=== PATIENT | male | born 1930 | race African-American/Black ===

== ENCOUNTER 2019-03-28 12:41 | Emergency (ER) | payer OTHER ==
--- OUTSIDE RECORDS SUMMARY | 2019-03-28 12:43 | XMS REPORT ---
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 30-59) 12/24 12/24 Joy disease, Stage DO III (moderate) Diabetes 250.00 Active Chelsea Diabetes mellitus 12/24 12/24 Joy mellitus DO without mention of complication, type II or unspecified type, not stated as uncontrolled VITAMIN D 268.9 Active Chelsea Unspecified DEFICIENCY 12/24 12/24 Joy vitamin D DO deficiency BPH (benign 600.00 Active Chelsea Hypertrophy prostatic 12/10 12/10 Joy (benign) of hypertrophy) DO prostate without urinary obstruction and other lower urinary tract (LUTS) 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, unspecified Hypothyroidism 244.9 Active Chelsea Unspecified 12/10 12/10 Joy hypothyroidism DO Lumbago 724.2 Active Chelsea Lumbago 12/10 12/10 Joy DO Overweight 278.02 Active Chelsea Overweight 12/10 12/10 Joy DO Well adult exam V70.0 Active Chelsea Routine general 12/10 12/10 Joy medical DO examination at a health care facility Medication List Medication Instructions Start Stop Generic NDC Status Provider Patient Date Date Name Instruction VITAMIN D One ERGOCALCIFEROL 23447436065 Active Chelsea Active (ERGOCALCIFEROL) tablet Joy 25143 UNIT ORAL by DO CAPSULE mouth once per week for 12 weeks SYNTHROID 75 MCG 1 by LEVOTHYROXINE 51211849566 Active Chelsea Active ORAL TABLET mouth SODIUM Joy every DO day one hour before breakfa st TAMSULOSIN HCL 2 caps TAMSULOSIN HCL 24749354272 Active Chelsea Active 0.4 MG ORAL By Joy CAPSULE Mouth DO qHS TYLENOL EXTRA 2 by ACETAMINOPHEN [id number] Active Chelsea Active STRENGTH 500 MG mouth Ojy ORAL TABLET every 8 DO hours as needed for pain GLIPIZIDE ER one By Mouth GLIPIZIDE ER GLIPIZIDE Inactive 2.5 MG ORAL qAM before 2.5 MG ORAL TABLET EXTENDED lunch TABLET EXTENDED RELEASE 24 HOUR RELEASE 24 HOUR GLIPIZIDE one By GLIPIZIDE [id number] No Chelsea Active ER 2.5 MG Mouth Longer Joy ORAL TABLET qAM Active DO EXTENDED before RELEASE 24 lunch HOUR Advance Directives Directive Description Start Date DISCUSSED - NO DECISION MADE Diagnostic Results Date Name Value Unit Range Description Lab Report: LIPID PANEL, HDL CHOLESTEROL, TRIGLYCERIDES, LDL-CHOLESTEROL ... - Serology hepatitis C antibody, serum NON-REACTIVE NON-REACTIVE Lab Report: COMPREHENSIVE METABOLIC PANEL, T4, FREE, TSH W/REFLEX TO FT4 - Chemistry urea nitrogen, blood 20 mg/dL 7-25 Lab Report: LIPID PANEL, HDL CHOLESTEROL, TRIGLYCERIDES, LDL-CHOLESTEROL ... - Hematology mean platelet volume 10.0 fL 7.5-11.5 Lab Report: COMPREHENSIVE METABOLIC PANEL, T4, FREE, TSH W/REFLEX TO FT4 - Chemistry creatinine, serum 1.83 mg/dL 0.70-1.11 chloride, serum 104 mmol/L 98-110 Lab Report: LIPID PANEL, HDL CHOLESTEROL, TRIGLYCERIDES, LDL-CHOLESTEROL ... - Hematology mean corpuscular volume, RBC 88.0 fL 80.0-100.0 Lab Report: LIPID PANEL, HDL CHOLESTEROL, TRIGLYCERIDES, LDL-CHOLESTEROL ... - Chemistry triglyceride, serum, fasting 151 mg/dL <150 lymphocytes, absolute 2218 CELLS/UL 10*3/uL 850-3900 Lab Report: LIPID PANEL, HDL CHOLESTEROL, TRIGLYCERIDES, LDL-CHOLESTEROL ... - Hematology erythrocyte (RBC) count 5.02 MILLION/UL 10*6/mm3 4.20-5.80 Lab Report: COMPREHENSIVE METABOLIC PANEL, T4, FREE, TSH W/REFLEX TO FT4 - Chemistry Estimated Glomerular Filtration 33 mL/min/1.73m2 > OR=60 Rate (calc) globulins, serum, total 3.3 G/DL (CALC) g/dL 1.9-3.7 Lab Report: LIPID PANEL, HDL CHOLESTEROL, TRIGLYCERIDES, LDL-CHOLESTEROL ... - Hematology platelet count 183 THOUSAND/UL 10*3/mm3 691-567 2538/03/24 red blood cell distribution width 16.9 % 11.0-15.0 Lab Report: COMPREHENSIVE METABOLIC PANEL, T4, FREE, TSH W/REFLEX TO FT4 - Chemistry protein, total, serum 7.6 g/dL 6.1-8.1 Lab Report: LIPID PANEL, HDL CHOLESTEROL, TRIGLYCERIDES, LDL-CHOLESTEROL ... - Chemistry HDL cholesterol, serum 51 mg/dL > OR=40 cholesterol, non-HDL, total 154 MG/DL (CALC) mg/dL Lab Report: COMPREHENSIVE METABOLIC PANEL, T4, FREE, TSH W/REFLEX TO FT4 - Chemistry albumin/globulin ratio, serum 1.3 (calc) 1.0-2.5 Lab Report: LIPID PANEL, HDL CHOLESTEROL, TRIGLYCERIDES, LDL-CHOLESTEROL ... - Hematology basophil count, absolute 13 cells/uL 0-200 Lab Report: LIPID PANEL, HDL CHOLESTEROL, TRIGLYCERIDES, LDL-CHOLESTEROL ... - Chemistry hepatitis B surface antigen NON-REACTIVE NON-REACTIVE Lab Report: COMPREHENSIVE METABOLIC PANEL, T4, FREE, TSH W/REFLEX TO FT4 - Chemistry alanine aminotransferase (SGPT), serum 18 U/L 9-46 Lab Report: LIPID PANEL, HDL CHOLESTEROL, TRIGLYCERIDES, LDL-CHOLESTEROL ... - Chemistry LDL cholesterol, serum 124 MG/DL (CALC) mg/dL <130 Lab Report: LIPID PANEL, HDL CHOLESTEROL, TRIGLYCERIDES, LDL-CHOLESTEROL ... - Hematology monocytes as percent of blood leukocytes 8.1 % eosinophils as percent of blood leukocytes 1.0 % Lab Report: LIPID PANEL, HDL CHOLESTEROL, TRIGLYCERIDES, LDL-CHOLESTEROL ... - Chemistry cholesterol, serum 205 mg/dL 125-200 Lab Report: LIPID PANEL, HDL CHOLESTEROL, TRIGLYCERIDES, LDL-CHOLESTEROL ... - Lab Hepatitis C Antibody, Signal to Cut-Off 0.03 <1.00 Lab Report: LIPID PANEL, HDL CHOLESTEROL, TRIGLYCERIDES, LDL-CHOLESTEROL ... - Hematology mean corpuscular hemoglobin 33.1 G/DL % 32.0-36.0 concentration, RBC hemoglobin, blood 14.6 g/dL 13.2-17.1 leukocyte count, blood 6.6 THOUSAND/UL 10*3/mm3 3.8-10.8 Lab Report: LIPID PANEL, HDL CHOLESTEROL, TRIGLYCERIDES, LDL-CHOLESTEROL ... - Chemistry B-12, serum 232 pg/mL 200-1100 Absolute Neutrophil count 3769 {Cells}/uL 2990-0677 Lab Report: LIPID PANEL, HDL CHOLESTEROL, TRIGLYCERIDES, LDL-CHOLESTEROL ... - Hematology hematocrit, blood 44.2 % 38.5-50.0 Lab Report: LIPID PANEL, HDL CHOLESTEROL, TRIGLYCERIDES, LDL-CHOLESTEROL ... - Chemistry vitamin D 25-hydroxy, serum 8 ng/mL 30-100 Lab Report: COMPREHENSIVE METABOLIC PANEL, T4, FREE, TSH W/REFLEX TO FT4 - Chemistry albumin, serum 4.3 g/dL 3.6-5.1 Lab Report: LIPID PANEL, HDL CHOLESTEROL, TRIGLYCERIDES, LDL-CHOLESTEROL ... - Hematology basophils as percent of blood leukocytes 0.2 % Lab Report: COMPREHENSIVE METABOLIC PANEL, T4, FREE, TSH W/REFLEX TO FT4 - Chemistry calcium, serum 10.0 mg/dL 8.6-10.3 thyroxine, serum, free 1.2 ng/dL 0.8-1.8 Internal Correspondence: Pre-Visit Planning 4/26/16 915am - [employer]1, name Danielle Garcia Lab Report: COMPREHENSIVE METABOLIC PANEL, T4, FREE, TSH W/REFLEX TO FT4 - Chemistry urea nitrogen/creatinine ratio, serum 11 (calc) 6-22 Lab Report: COMPREHENSIVE METABOLIC PANEL, T4, FREE, TSH W/REFLEX TO FT4 - Genetics/fertility eGFR if 38 mL/min/1.73m2 > OR=60 Lab Report: LIPID PANEL, HDL CHOLESTEROL, TRIGLYCERIDES, LDL-CHOLESTEROL ... - Hematology lymphocytes as percent of blood leukocytes 33.6 % Lab Report: COMPREHENSIVE METABOLIC PANEL, T4, FREE, TSH W/REFLEX TO FT4 - Chemistry carbon dioxide, venous blood 24 mmol/L 19-30 Lab Report: LIPID PANEL, HDL CHOLESTEROL, TRIGLYCERIDES, LDL-CHOLESTEROL ... - Serology rapid plasma reagin antibody, serum NON-REACTIVE NON-REACTIVE Lab Report: COMPREHENSIVE METABOLIC PANEL, T4, FREE, TSH W/REFLEX TO FT4 - Chemistry sodium, serum 140 mmol/L 135-146 Office Visit: Adult Followup: Lumbago, hypothyroidism and dizziness - Chemistry hemoglobin A1C, blood, as % of total hemoglobin 6.3 % Lab Report: COMPREHENSIVE METABOLIC PANEL, T4, FREE, TSH W/REFLEX TO FT4 - Chemistry alkaline phosphatase, serum 68 U/L 40-115 Lab Report: LIPID PANEL, HDL CHOLESTEROL, TRIGLYCERIDES, LDL-CHOLESTEROL ... - Hematology Absolute Monocyte count 535 {Cells}/uL 200-950 Lab Report: LIPID PANEL, HDL CHOLESTEROL, TRIGLYCERIDES, LDL-CHOLESTEROL ... - Chemistry folate, serum 8.0 ng/mL Lab Report: COMPREHENSIVE METABOLIC PANEL, T4, FREE, TSH W/REFLEX TO FT4 - Chemistry TSH (thyroid stimulating hormone) with reflex FT4 5.22 m[iU]/L 0.40-4.50 Lab Report: LIPID PANEL, HDL CHOLESTEROL, TRIGLYCERIDES, LDL-CHOLESTEROL ... - Hematology mean corpuscular hemoglobin, RBC 29.1 pg 27.0-33.0 Lab Report: COMPREHENSIVE METABOLIC PANEL, T4, FREE, TSH W/REFLEX TO FT4 - Chemistry bilirubin, serum, total 0.4 mg/dL 0.2-1.2 Lab Report: LIPID PANEL, HDL CHOLESTEROL, TRIGLYCERIDES, LDL-CHOLESTEROL ... - Hematology neutrophils as percent of blood leukocytes 57.1 % Lab Report: COMPREHENSIVE METABOLIC PANEL, T4, FREE, TSH W/REFLEX TO FT4 - Chemistry potassium, serum 5.0 mmol/L 3.5-5.3 blood glucose, random 85 mg/dL 65-99 Lab Report: LIPID PANEL, HDL CHOLESTEROL, TRIGLYCERIDES, LDL-CHOLESTEROL ... - Serology hepatitis B surface antibody NON-REACTIVE NON-REACTIVE Lab Report: LIPID PANEL, HDL CHOLESTEROL, TRIGLYCERIDES, LDL-CHOLESTEROL ... - Chemistry cholesterol/HDL ratio, serum, percent 4.0 (calc) < OR=5.0 Lab Report: COMPREHENSIVE METABOLIC PANEL, T4, FREE, TSH W/REFLEX TO FT4 - Chemistry aspartate aminotransferase (SGOT), serum 19 U/L 10-35 Lab Report: LIPID PANEL, HDL CHOLESTEROL, TRIGLYCERIDES, LDL-CHOLESTEROL ... - Hematology Absolute Eosinophil count 66 {Cells}/uL 15-500 Encounters Date Encounter Provider Code Facility Est Patient Detailed Chelsea Hamilton DO [id number] [facility] 15:57:50 CDT - 10066 Practice Est Patient Detailed Chelsea Hamilton DO CPT-76873 [facility] 09:51:45 CDT - 35271 Practice Procedures Code Procedure Name Date Entry Date Standard Description CPT-99266 New Patient Well Exam 10:49:08 (65 & Over) - 08231 CDT
[2019-03-28 13:21] LABS: Absolute Lymphocytes (CBC) 1.6 K/uL (0.7-4.9); Basophils % 0.4 % (0-1.3); Eosinophils % 1.1 % (0-4.4); Hematocrit 49.8 % (39.6-49.0); Lymphocytes % 20.5 % (15.3-44.8); MPV 9.3 fL (7.6-11.3); Monocytes % 17.3 % (3.3-12.3); RBC Red Blood Cell Count 5.86 M/uL (4.33-5.43)
[2019-03-28 13:42] LABS: Albumin 3.2 g/dL (3.4-5.0); Bilirubin Direct 0.2 mg/dL (0-0.2); Bilirubin Total 0.6 mg/dL (0.2-1.0); Potassium 4.4 mmol/L (3.5-5.1); Protein, Total 8.8 g/dL (6.4-8.2)
[2019-03-28 14:23] LABS: Blood Morphology Comment NOT SEEN (NOT SEEN); Platelet Estimate ADEQ
--- NOTE | 2019-03-28 14:51 | RAD REPORT ---
EXAM DESCRIPTION: CT - Stone Protocol - 03/28/2019 2:16 pm CLINICAL HISTORY: Flank pain. left sided abdominal pain COMPARISON: No comparisons TECHNIQUE: Axial images were obtained without oral or IV contrast. Lack of contrast limits solid org an and vascular assessment. The [id number] spans the entirety of the system partially obscuring uppermost abdomen and lung bases. Coronal reformatted images were obtained and reviewed. All CT scans are performed using dose optimization technique as appropriate and may include automated exposure control or mA/KV adjustment according to patient size. FINDINGS: The lower lung thrasher are emphysematous but clear. Imaged portions of the liver and spleen show no suspicious findings on non-contrast imaging. The panc reas and adrenal glands are normal. No pathologic lymphadenopathy in the abdomen or pelvis. No urinary tract stones or obstructive uropathy. Prominent right renal cyst measuring 6 cm is seen. There is quite prominent distention of the colon with stool and air. Normal appendix noted.No free ai r or free fluid. Prostate appears enlarged with a Hancock catheter in place. Large right and a small left inguinal herni a is seen. IMPRESSION: Prominent retention of stool in the colon is seen with mild distention of the colon pres ent. Significant prostatomegaly. Small left and moderate large right fat containing inguinal hernias.
[2019-03-28] MEDS ORDERED: FLEET ENEMA ADULT PR ONE (17:40)
--- NOTE | 2019-03-28 18:17 | ER ---
Nurse's Notes [facility] Name: Tristin Sanchez Age: 88 yrs Sex: Male : 1930 Arrival Date: 03/28/2019 Time: 12:46 Bed 23 Private MD: Diagnosis: Constipation, unspecified Presentation: 03/28 12:47 Presenting complaint: Patient states: intermittent abd pain that began 2 days ago. ss Denies N/V/D. Transition of care: patient was not received from another setting of care. Onset of symptoms was March 26, 2019. Risk Assessment: Do you want to hurt yourself or someone else? Patient reports no desire to harm self or others. Initial Sepsis Screen: Does the patient meet any 2 criteria? No. Patient's initial sepsis screen is negative. Does the patient have a suspected source of infection? Yes: Dysuria/Frequency/Urgency/UTI. Care prior to arrival: IV initiated. 20 GA, in the left antecubital area. Care prior to arrival: Medication(s) given: Normal saline infusion, 250 mL administered. 12:47 Method Of Arrival: EMS: [facility] ([place] 12:47 Acuity: HANSEL 3 ss Triage Assessment: 17:00 General: Appears in no apparent distress. Behavior is calm, cooperative. Pain: Denies iw pain. Historical: - Allergies: 12:52 No Known Allergies; ss - Immunization history:: Adult Immunizations unknown. - Social history:: Smoking status: Patient/guardian denies using tobacco. - Ebola Screening: : Patient denies exposure to infectious person Patient denies travel to an Ebola-affected area in the 21 days before illness onset. Screenin:24 Abuse screen: Denies threats or abuse. Denies injuries from another. Nutritional iw screening: No deficits noted. Tuberculosis screening: No symptoms or risk factors identified. Fall Risk None identified. Assessment: 14:23 Reassessment: Patient appears in no apparent distress at this time. Patient and/or iw family updated on plan of care and expected duration. Pain level reassessed. Patient denies pain at this time. Patient states feeling better. Patient states symptoms have improved. 15:42 Reassessment: Patient appears in no apparent distress at this time. No changes from iw previously documented assessment. Patient and/or family updated on plan of care and expected duration. Pain level reassessed. 16:47 Reassessment: Patient appears in no apparent distress at this time. Patient and/or iw family updated on plan of care and expected duration. Pain level reassessed. Patient is alert, oriented x 3, equal unlabored respirations, skin warm/dry/pink. family at bedside, waiting dispo. 18:12 Reassessment: Patient cleaned of large BM. States feeling much better. Abd is soft, ss non-tender. Vital Signs: 12:52 BP 195 / 80; Pulse 86; Resp 17; Temp 98.6(O); Pulse Ox 98% on R/A; Height 5 ft. 9 in. ss (175.26 cm); Pain 3/10; 14:23 BP 167 / 65; Pulse 74; Resp 16; Temp 98.0; Pulse Ox 100% on R/A; Pain 0/10; iw 16:01 BP 149 / 68; Pulse 82; Resp 16; Pulse Ox 96% on R/A; Pain 0/10; iw ED Course: 12:46 Patient arrived in ED. ss 12:52 Triage completed. ss 12:52 Arm band placed on left wrist. ss 13:00 Maintain EMS IV. Dressing intact. Site clean \T\ dry. Gauge \T\ site: 20-gauge in Right héctor 3 A/C. Patient maintains SpO2 saturation greater than 95% on room air. 13:07 Initial lab(s) drawn, by me, sent to lab. Inserted saline lock: 22 gauge in right jp3 antecubital area, using aseptic technique. Blood collected. 13:16 [facility] 13:16 Anderson Mcgarry MD is Attending Physician. m 13:54 Karly Charles, SUSHANT is Primary Nurse. iw 14:00 Patient has correct armband on for positive identification. iw 14:21 CT Stone Protocol In Process Unspecified. EDMS 18:15 Yony Cronin MD is Referral Physician. [facility] 18:52 No provider procedures requiring assistance completed. IV discontinued, intact, iw bleeding controlled, No redness/swelling at site. Pressure dressing applied. Administered Medications: 17:49 Drug: Fleet Enema 133 ml Route: MN; iw Outcome: 18:16 Discharge ordered by MD. [facility] 18:53 Discharged to home ambulatory. iw 18:53 Condition: good 18:53 Discharge instructions given to family, Instructed on discharge instructions, follow up and referral plans. Demonstrated understanding of instructions, follow-up care, medications, Prescriptions given X 1. 18:54 Patient left the ED. iw Signatures: Dispatcher [employer] EDMS Jim Montoya PA PA jmm Williams, Irene, SUSHANT CANCHOLA iw Evangelina Us RN RN ss Pisarski, Jacob jp3 Corrections: (The following items were deleted from the chart) 12:54 12:52 BP 195 / 80; Pulse 86bpm; Resp 17bpm; Pulse Ox 98% RA; Height 5 ft. 9 in.; Pain ss 3/10; ss 14:37 13:57 CBC Smear Scan drawn and sent. jp3 EDMS
--- NOTE | 2019-03-28 18:17 | EDPHYS ---
Physician Documentation [facility] Name: Tristin Sanchez Age: 88 yrs Sex: Male : 1930 Arrival Date: 03/28/2019 Time: 12:46 Bed 23 Private MD: ED Physician Anderson Mcgarry HPI: 03/28 13:26 This 88 yrs old Black Male presents to ER via EMS with complaints of Abdominal Pain. jmm 13:26 The patient presents with abdominal pain in the left lower quadrant, abdominal jmm distention. Onset: The symptoms/episode began/occurred gradually, 2 day(s) ago. Associated signs and symptoms: Pertinent positives: constipation, Pertinent negatives: nausea and vomiting, diarrhea. This is a 88 year old male that presents to the ED with complaints of 2 days ago abdominal pain and distension. Family states the patient has no eating today. Patient states he most recent bowel movement was 3 weeks ago. . Historical: - Allergies: 12:52 No Known Allergies; ss - Immunization history:: Adult Immunizations unknown. - Social history:: Smoking status: Patient/guardian denies using tobacco. - Ebola Screening: : Patient denies exposure to infectious person Patient denies travel to an Ebola-affected area in the 21 days before illness onset. ROS: 13:26 Constitutional: Negative for fever, chills, and weight loss, Cardiovascular: Negative jmm for chest pain, palpitations, and edema, Respiratory: Negative for shortness of breath, cough, wheezing, and pleuritic chest pain. 13:26 Abdomen/GI: Positive for abdominal pain, constipation. 13:26 All other systems are negative. Exam: 13:26 Constitutional: This is a well developed, well nourished patient who is awake, alert, jmm and in no acute distress. Head/Face: atraumatic. Eyes: EOMI, no conjunctival erythema appreciated ENT: Moist Mucus Membranes Neck: Trachea midline, Supple Chest/axilla: Normal chest wall appearance and motion. Cardiovascular: Regular rate and rhythm. No edema appreciated Respiratory: Normal respirations, no respiratory distress appreciated 13:26 Abdomen/GI: Inspection: distension, that is mild, Bowel sounds: normal, Palpation: soft, mild abdominal tenderness, in the left upper quadrant and left lower quadrant. 13:26 Musculoskeletal/extremity: ROM: intact in all extremities. 13:26 Skin: Appearance: Color: normal in color. 13:26 Neuro: Orientation: is normal, Mentation: is normal, Memory: is normal. 13:26 Psych: Behavior/mood is pleasant, cooperative. Vital Signs: 12:52 BP 195 / 80; Pulse 86; Resp 17; Temp 98.6(O); Pulse Ox 98% on R/A; Height 5 ft. 9 in. ss (175.26 cm); Pain 3/10; 14:23 BP 167 / 65; Pulse 74; Resp 16; Temp 98.0; Pulse Ox 100% on R/A; Pain 0/10; iw 16:01 BP 149 / 68; Pulse 82; Resp 16; Pulse Ox 96% on R/A; Pain 0/10; iw MDM: 13:26 Patient medically screened. [facility] 18:14 Data reviewed: vital signs, nurses notes. Counseling: I had a detailed discussion with nica the patient and/or guardian regarding: the historical points, exam findings, and any diagnostic results supporting the discharge/admit diagnosis, radiology results, the need for outpatient follow up, to return to the emergency department if symptoms worsen or persist or if there are any questions or concerns that arise at home. ED course: Patient able to have a full bowel movement in the ED with relief. Patient advised to follow up with PCP and GI for further evaluation. Patient was otherwise given strict return precautions. Patient understood and agrees with the plan of care. . 03/28 12:54 Order name: Basic Metabolic Panel; Complete Time: 14:03 03/28 12:54 Order name: CBC with Diff; Complete Time: 14:43 03/28 12:54 Order name: Creatinine for Radiology; Complete Time: 14:03 03/28 12:54 Order name: Hepatic Function; Complete Time: 14:03 03/28 12:54 Order name: Lipase; Complete Time: 14:03 03/28 12:54 Order name: IV Saline Lock; Complete Time: 13:26 03/28 12:54 Order name: Labs collected and sent; Complete Time: 13:26 03/28 14:04 Order name: CT Stone Protocol; Complete Time: 16:04 [facility] 03/28 14:25 Order name: Manual Differential; Complete Time: 14:43 EDMS Administered Medications: 17:49 Drug: Fleet Enema 133 ml Route: MT; iw Disposition: 03/29 07:33 Co-signature as Attending Physician, Anderson Mcgarry MD I agree with the assessment and kdr plan of care. Disposition: 03/28/19 18:16 Discharged to Home. Impression: Constipation, unspecified. - Condition is Stable. - Discharge Instructions: Constipation, Adult. - Prescriptions for Miralax 17 gram/dose Oral - take 1 packet by ORAL route once daily dilute powder in 8 ounces of water or juice; 1 Container. - Medication Reconciliation Form, Thank You Letter, Antibiotic Education, Prescription Opioid Use form. - Follow up: Yony Cronin MD; When: 2 - 3 days; Reason: Recheck today's complaints, Continuance of care, Re-evaluation by your physician. Signatures: Dispatcher [employer] EDMO Anderson Mcgarry MD MD [facility] Jim Montoya PA PA jmm Williams, Irene, SUSHANT RN iw Evangelina Us RN RN ss Corrections: (The following items were deleted from the chart) 03/28 14:07 13:27 Abdomen Pelvis W Con+CT.RAD.BRZ ordered. [facility] EDMO 14:37 13:24 CBC Smear Scan ordered. [facility] EDMS 18:54 18:16 03/28/2019 18:16 Discharged to Home. Impression: Constipation, unspecified. iw Condition is Stable. Forms are Medication Reconciliation Form, Thank You Letter, Antibiotic Education, Prescription Opioid Use. Follow up: Yony Cronin; When: 2 - 3 days; Reason: Recheck today's complaints, Continuance of care, Re-evaluation by your physician. kerri
== END 2019-03-28 18:54 | disposition home or self-care (01) ==
LOC: ER 12:41
DX: K59.00 Constipation, unspecified (principal)
CPT/HCPCS: 36415; 74176; 76377; 80048; 80076; 83690; 85025; 99284

== ENCOUNTER 2021-04-24 08:28 | Inpatient (IN) | payer OTHER ==
--- OUTSIDE RECORDS SUMMARY | 2021-04-24 08:31 | XMS REPORT | Continuity of Care Document ---
:1930 Author Organization [facility] t Address [address] [place] [address] Care Team Providers Name Role Phone Doctor Unassigned, Name Attending Clinician Unavailable Della CONNOLLY Attending Clinician Problems Condition Condition Condition Status Onset Resolution Last Treating Co mments Source Name Details Category Date Date Treatment Clinician Date Hyperlipid Hyperlipid Problem Active [facility] emia emia 02-27 Family 00:00: Practic 00 e Body mass Body Mass Problem Active Kia ann index Index 6-11 Family 25-29 - 25-29 - 00:00: Practic overweight Overweight 00 e Peripheral Peripheral Problem Active [facility] vascular Vascular 02-27 Family disease Disease 00:00: Practic 00 e Benign Benign Problem Active [facility] prostatic Prostatic - Fami ly hyperplasi Hyperplasi 00:00: Pr actic a a 00 e Frail Frail Problem Active [facility] elderly Elderly 6-11 Family 00:00: Practic 00 e 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 Social History Smoking Status Start Date Stop Date Source Never Smoker [facility] P ractice Medications Ordered Filled Start Stop Current Ordering Indication Dosage Frequency Signature Comments Components Source Medication Medication Date Date Medication? Clinician (SIG) Name Name Adult Adult No 1 Q1D Adult [facility] Aspirin Aspirin Aspirin Family Regimen 81 Regimen 81 Regimen 81 Practic mg mg mg e tablet,roula tablet,roula tablet,del yed release yed release ayed Take 1 Take 1 release tablet tablet Take 1 every day every day tablet by oral by oral every day route. route. by oral route. atorvastati atorvastati No atorvastat [facility] n 40 mg n 40 mg in 40 mg Famil y tablet tablet tablet Practic e levothyroxi levothyroxi No levothyrox [facility] ne 75 mcg ne 75 mcg ine 75 mcg Family tablet tablet tablet Practic e polyethylen polyethylen No polyethyle [facility] e glycol e glycol ne glycol Fa erum 3350 (bulk) 3350 (bulk) 3350 P ractic powder powder (bulk) e powder tamsulosin tamsulosin No 1capsul Q1D tamsulosin [facility] 0.4 mg 0.4 mg e(s) 0.4 mg Family capsule capsule capsule Practi c Take 1 Take 1 Take 1 e capsule capsule capsule every day every day every day by oral by oral by oral route. route. route. Vital Signs Vital Name Observation Time Observation Value Comments Source BP Diastolic 2021-02-24 00:00:00 60 mm[Hg] [facility] Height 2021-02-24 00:00:00 68 [in_i] [facility] BMI (Body Mass 2021-02-24 00:00:00 28.1 kg/m2 [facility] BP Systolic 2021-02-24 00:00:00 130 mm[Hg] [facility] Body Weight 2021-02-24 00:00:00 185 [lb_av] [facility] Height 2020-07-15 00:00:00 69 [in_i] [facility] Height 2020-04-14 00:00:00 69 [in_i] [facility] Procedures This patient has no known procedures. Plan of Care Planned Activity Planned Date Details Comments Source Future Appointment 2021-08-29 00:00[facility] [address]; Practice [address], [place] [address] [facility] Encounters Start End Encounter Admission Attending Care Care Encounter Source Date/Time Date/Time Type Type Clinicians Facility Department ID 2021-04-06 2021-04-06 Orders Doctor YURI [id number] 00:00:00 00:00:00 Only Unassigned, MARSHA [id number] [facility] [id number] 2021-03-26 2021-03-26 Orders Doctor YURI [id number] 00:00:00 00:00:00 Only Unassigned, MARSHA [id number] [facility] [id number] 2021-02-24 2021-02-24 Briseyda [facility] [place] - [id number] [facility]age 00:00:00 00:00:00 [facility] Krystal Zafar Medical - Practi c CNS: [email or web address] [address], [place] [address] , Ph. 2021-02-11 2021-02-11 Telephone Della [facility] [id number] 00:00:00 00:00:00 Cheng Benitez [id number] [facility] [id number] [facility] [id number] [address] 2021-02-07 2021-02-07 Orders Doctor WELCH [id number] 00:00:00 00:00:00 Only Unassigned, MARSHA [id number] [facility] [id number] 2020-07-15 2020-07-15 Sherrie [facility] [place] - [id number] [facility] 00:00:00 00:00:00 [facility] vanessa boone, CNS: Medical - Practi c [email or web address] [facility], [address] [address], [place] [address] , Ph. 2020-04-14 2020-04-14 Sherrie [facility] [place] - [id number] [facility] 00:00:00 00:00:00 [facility] CNS: Medical - Practi c [email or web address] [address], [place] [address] , Ph. Results This patient has no known results.
[2021-04-24 09:33] LABS: Absolute Lymphocytes (CBC) 1.2 K/uL (0.7-4.9); Basophils % 0.4 % (0-1.3); Hematocrit 37.2 % (39.6-49.0); Lymphocytes % 14.6 % (15.3-44.8); MPV 8.7 fL (7.6-11.3); RBC Red Blood Cell Count 4.37 M/uL (4.33-5.43)
[2021-04-24] MEDS ORDERED: MORPHINE 4 MG/ML SYR ONE (09:40)
[2021-04-24] MEDS ORDERED: ONDANSETRON 4 MG/2 ML VIAL ONE (09:40)
[2021-04-24 09:46] LABS: Protime INR 1.03
[2021-04-24 09:54] LABS: Albumin 3.6 g/dL (3.4-5.0); Bilirubin Direct 0.2 mg/dL (0-0.2); Bilirubin Total 0.6 mg/dL (0.2-1.0); Potassium 3.2 mmol/L (3.5-5.1); Protein, Total 7.5 g/dL (6.4-8.2)
[2021-04-24] MEDS ORDERED: NA CHLORIDE 0.9% 1,000 ML ONE (10:39)
--- NOTE | 2021-04-24 10:47 | RAD REPORT ---
EXAM DESCRIPTION: CT - Abdomen Pelvis Wo Contrast - 04/24/2021 10:13 am CLINICAL HISTORY: Abdominal pain COMPARISON: 2019 TECHNIQUE: Computed axial tomography of the abdomen and pelvis was obtained. IV and oral contrast we re not requested. All CT scans are performed using dose optimization technique as appropriate and may include automated exposure control or mA/KV adjustment according to patient size. FINDINGS: The evaluation of solid organs, vessels and bowel is limited secondary to the lack of con trast administration. Hepatic and splenic granulomata. The pancreas and adrenals appear grossly normal. Several right renal cysts. The largest measures 6 centimeters. Mild dilatation of the colon having the appearance of an ileus. Fluid is present within large and sma ll bowel. Normal appendix. Prostate gland is moderately to markedly enlarged. A Hancock catheter has its tip pushing against the s uperior wall of the bladder. No evidence of diverticulitis. Moderate right and small to moderate left inguinal hernias contain fat Small hiatal hernia IMPRESSION: Mild dilatation of fluid-filled large bowel having the appearance of an ileus. A Hancock catheter has its tip pushing against the superior wall of the bladder.
--- NOTE | 2021-04-24 11:36 | ER ---
Nurse's Notes [facility] Name: Tristin Sanchez Age: 89 yrs Sex: Male : 1930 Arrival Date: 04/24/2021 Time: 08:59 Bed 14 Private MD: Diagnosis: Ileus, unspecified;Abdominal pain, Generalized;Vomiting Presentation: 04/24 09:02 Chief complaint: EMS states: Daughter states abdominal pain x 2 days, RLQ rad to RUQ, ca1 reports abdominal distention and N/V/D. BGL 122. IV 20G LAC. PT has Hancock from home. VSS, NSR on EKG12L. Coronavirus screen: Client denies travel out of the [place] in the last 14 days. nausea, vomiting. Client presents with at least one sign or symptom that may indicate coronavirus-19. Standard/surgical mask placed on the client. Provider contacted for isolation considerations. Ebola Screen: Patient negative for fever greater than or equal to 101.5 degrees Fahrenheit, and additional compatible Ebola Virus Disease symptoms Patient denies exposure to infectious person. Patient denies travel to an Ebola-affected area in the 21 days before illness onset. No symptoms or risks identified at this time. Initial Sepsis Screen: Does the patient meet any 2 criteria? No. Patient's initial sepsis screen is negative. Does the patient have a suspected source of infection? No. Patient's initial sepsis screen is negative. Risk Assessment: Do you want to hurt yourself or someone else? Patient reports no desire to harm self or others. Onset of symptoms was April 23, 2021. 09:02 Method Of Arrival: [facility] ca1 09:02 Acuity: HANSEL 3 ca1 Historical: - Allergies: 09:05 Iodine; ca1 - PMHx: 09:05 Hypertensive disorder; Hypothyroidism; Hypercholesterolemia; ca1 - Immunization history:: Client reports receiving the 2nd dose of the Covid vaccine, Client reports receiving the 1st dose of the Covid vaccine. - Social history:: Smoking status: Patient denies any tobacco usage or history of. Screenin:06 Abuse screen: Denies threats or abuse. Denies injuries from another. Nutritional ca1 screening: No deficits noted. Tuberculosis screening: No symptoms or risk factors identified. Fall Risk IV access (20 points). Assessment: 09:06 General: Appears in no apparent distress. uncomfortable, Behavior is cooperative, ca1 appropriate for age. Pain: Complains of pain in right upper quadrant and right lower quadrant Pain currently is 10 out of 10 on a pain scale. Pain began 1 day ago. Is continuous. Neuro: Level of Consciousness is awake, alert, obeys commands, Oriented to person, place, time, situation. Cardiovascular: Heart tones S1 S2 present Capillary refill < 3 seconds Patient's skin is warm and dry. Respiratory: Airway is patent Respiratory effort is even, unlabored, Respiratory pattern is regular, symmetrical, Breath sounds are clear bilaterally. GI: Abdomen is round distended, Bowel sounds present X 4 quads. Abdomen is tender to palpation in right upper quadrant and right lower quadrant Reports diarrhea, nausea, vomiting. : Hancock in place to gravity drainage. EENT: No signs and/or symptoms were reported regarding the EENT system. Derm: Skin is intact, is healthy with good turgor, Skin is pink, warm \T\ dry. Musculoskeletal: Circulation, motion, and sensation intact. Capillary refill < 3 seconds. 11:20 Reassessment: Patient appears in no apparent distress at this time. Patient and/or ca1 family updated on plan of care and expected duration. Pain level reassessed. Patient is alert, oriented x 3, equal unlabored respirations, skin warm/dry/pink. 12:10 Reassessment: Patient appears in no apparent distress at this time. Patient and/or ca1 family updated on plan of care and expected duration. Pain level reassessed. Patient is alert, oriented x 3, equal unlabored respirations, skin warm/dry/pink. 13:10 Reassessment: Patient appears in no apparent distress at this time. Patient and/or ca1 family updated on plan of care and expected duration. Pain level reassessed. Patient is alert, oriented x 3, equal unlabored respirations, skin warm/dry/pink. 15:10 Reassessment: Patient appears in no apparent distress at this time. Patient and/or ca1 family updated on plan of care and expected duration. Pain level reassessed. Patient is alert, oriented x 3, equal unlabored respirations, skin warm/dry/pink. 16:44 Reassessment: Patient appears in no apparent distress at this time. Patient and/or ca1 family updated on plan of care and expected duration. Pain level reassessed. Patient is alert, oriented x 3, equal unlabored respirations, skin warm/dry/pink. 17:41 Reassessment: Patient appears in no apparent distress at this time. Patient and/or ca1 family updated on plan of care and expected duration. Pain level reassessed. Patient is alert, oriented x 3, equal unlabored respirations, skin warm/dry/pink. 18:45 Reassessment: Patient appears in no apparent distress at this time. Patient and/or ca1 family updated on plan of care and expected duration. Pain level reassessed. Patient is alert, oriented x 3, equal unlabored respirations, skin warm/dry/pink. 19:42 Reassessment: Patient appears in no apparent distress at this time. Patient and/or ca1 family updated on plan of care and expected duration. Pain level reassessed. Patient is alert, oriented x 3, equal unlabored respirations, skin warm/dry/pink. Vital Signs: 09:02 BP 126 / 78; Pulse 78; Resp 19 S; Temp 97.8(O); Pulse Ox 100% on R/A; Weight 77.11 kg ca1 (R); Height 5 ft. 9 in. (175.26 cm) (R); Pain 10/10; 11:20 BP 145 / 85; Pulse 78; Resp 16 S; Pulse Ox 99% on R/A; ca1 12:25 BP 142 / 53; Pulse 76; Resp 18 S; Pulse Ox 96% on R/A; ca1 13:30 BP 140 / 50; Pulse 76; Resp 16 S; Pulse Ox 96% on R/A; ca1 14:30 BP 152 / 60; Pulse 76; Resp 15 S; Pulse Ox 98% on R/A; ca1 15:25 BP 134 / 56; Pulse 79; Resp 16 S; Pulse Ox 99% on R/A; ca1 16:44 BP 146 / 56; Pulse 76; Resp 16 S; Pulse Ox 99% on R/A; ca1 17:41 BP 129 / 52; Pulse 79; Resp 18 S; Pulse Ox 100% on R/A; ca1 18:45 BP 145 / 53; Pulse 71; Resp 18 S; Pulse Ox 98% on R/A; ca1 19:42 BP 141 / 51; Pulse 71; Resp 18 S; Pulse Ox 98% on R/A; ca1 09:02 Body Mass Index 25.10 (77.11 kg, 175.26 cm) ca1 ED Course: 08:59 Patient arrived in ED. aa5 09:01 Eulalio Yeager PA is PHCP. jr8 09: Anderson Mcgarry MD is Attending Physician. jr8 09:01 Lizette Casper, SUSHANT is Primary Nurse. ca1 09:05 Triage completed. ca1 09:05 Arm band placed on right wrist. ca1 09:06 Patient has correct armband on for positive identification. Placed in gown. Bed in low ca1 position. Call light in reach. Side rails up X2. Pulse ox on. NIBP on. Warm blanket given. 09:18 No provider procedures requiring assistance completed. Initial lab(s) drawn, by me, ca1 sent to lab. Maintain EMS IV. Dressing intact. Good blood return noted. Site clean \T\ dry. Gauge \T\ site: G20 LAC. 10:13 CT Abd/Pelvis - Without Contrast In Process Unspecified. EDMS 11:35 Bob Vargas MD is Hospitalizing Provider. jr8 16:46 Patient admitted, IV remains in place. ca1 Administered Medications: 09:18 Drug: Zofran (Ondansetron) 4 mg Route: IVP; Site: left antecubital; ca1 10:22 Follow up: Response: No adverse reaction; Nausea is decreased; Vomiting decreased ca1 09:22 Drug: morphine 4 mg {Note: rass 0.} Route: IVP; Site: left antecubital; ca1 10:22 Follow up: Response: No adverse reaction; Pain is decreased; RASS: Alert and Calm (0) ca1 10:22 Drug: NS 0.9% 500 ml Route: IV; Rate: bolus; Site: left antecubital; ca1 11:07 Follow up: Response: No adverse reaction; IV Status: Completed infusion; IV Intake: ca1 500ml 11:07 Drug: NS 0.9% 1000 ml Route: IV; Rate: 75 ml/hr; Site: left antecubital; ca1 15:27 Follow up: IV Status: Infusion continued upon admission ca1 Intake: 11:07 IV: 500ml; Total: 500ml. ca1 Outcome: 11:36 Decision to Hospitalize by Provider. jr8 19:41 Admitted to Med/surg accompanied by nataly, via stretcher, room 216, with chart, Report ca1 called to SUSHANT Martin 19:41 Condition: stable ca1 19:41 Instructed on the need for admit. 20:17 Patient left the ED. ca1 Signatures: Dispatcher [employer] EDKim Aparicio, RN RN aa5 Eulalio Yegaer PA PA jr8 Lizette Casper RN RN ca1 Corrections: (The following items were deleted from the chart) 09:06 09:02 Chief complaint: EMS states: Daughter states abdominal pain x 2 days, RLQ rad to ca1 RUQ, reports abdominal distention and Nausea. BGL 122. IV 20G LAC. PT has Hancock from home. VSS, NSR on EKG12L ca1 19:41 19:41 Admitted to ca1 ca1
--- NOTE | 2021-04-24 11:36 | EDPHYS ---
Physician Documentation [facility] Name: Tristin Sanchez Age: 89 yrs Sex: Male : 1930 Arrival Date: 04/24/2021 Time: 08:59 Bed 14 Private MD: ED Physician Anderson Mcgarry HPI: 04/24 09:31 This 89 yrs old Black Male presents to ER via EMS with complaints of Abdominal Pain, jr8 Abdominal Distention. 09:31 The patient presents with abdominal pain Right midabdomen. Onset: The symptoms/episode jr8 began/occurred acutely, this morning. The symptoms do not radiate. Associated signs and symptoms: Pertinent positives: nausea, vomiting, and diarrhea. The symptoms are described as stabbing. Modifying factors: The symptoms are alleviated by nothing, the symptoms are aggravated by movement. Severity of pain: At its worst the pain was moderate in the emergency department the pain is unchanged. The patient has not experienced similar symptoms in the past. The patient has not recently seen a physician. Historical: - Allergies: 09:05 Iodine; ca1 - PMHx: 09:05 Hypertensive disorder; Hypothyroidism; Hypercholesterolemia; ca1 - Immunization history:: Client reports receiving the 2nd dose of the Covid vaccine, Client reports receiving the 1st dose of the Covid vaccine. - Social history:: Smoking status: Patient denies any tobacco usage or history of. ROS: 09:31 Cardiovascular: Negative for chest pain, palpitations, and edema, Respiratory: Negative jr8 for shortness of breath, cough, wheezing, and pleuritic chest pain, Back: Negative for injury and pain, MS/Extremity: Negative for injury and deformity, Skin: Negative for injury, rash, and discoloration, Neuro: Negative for headache, weakness, numbness, tingling, and seizure. 09:31 Abdomen/GI: Positive for abdominal pain, nausea, vomiting, and diarrhea, abdominal distension. Exam: 09:31 Cardiovascular: Regular rate and rhythm with a normal S1 and S2. No gallops, murmurs, jr8 or rubs. Normal PMI, no JVD. No pulse deficits. Respiratory: Lungs have equal breath sounds bilaterally, clear to auscultation and percussion. No rales, rhonchi or wheezes noted. No increased work of breathing, no retractions or nasal flaring. Back: No spinal tenderness. No costovertebral tenderness. Full range of motion. Skin: Warm, dry with normal turgor. Normal color with no rashes, no lesions, and no evidence of cellulitis. MS/ Extremity: Pulses equal, no cyanosis. Neurovascular intact. Full, normal range of motion. Neuro: Awake and alert, GCS 15, oriented to person, place, time, and situation. Cranial nerves II-XII grossly intact. Motor strength 5/5 in all extremities. Sensory grossly intact. Cerebellar exam normal. Normal gait. 09:31 Constitutional: The patient appears alert, awake, in obvious pain, uncomfortable. 09:31 Abdomen/GI: Inspection: distension, that is mild, obese Bowel sounds: diminished, in all quadrants, Palpation: soft, in all quadrants, moderate abdominal tenderness, in the Right mid abdomen, mass, is not appreciated, rebound tenderness, is not appreciated, voluntary guarding, is elicited in the abdomen, involuntary guarding, is not appreciated, no appreciated organomegaly, Indicators: McBurney's point is not tender, Nance's sign is negative, Rovsing's sign is negative, Liver: tenderness, is not appreciated. Vital Signs: 09:02 BP 126 / 78; Pulse 78; Resp 19 S; Temp 97.8(O); Pulse Ox 100% on R/A; Weight 77.11 kg ca1 (R); Height 5 ft. 9 in. (175.26 cm) (R); Pain 10/10; 11:20 BP 145 / 85; Pulse 78; Resp 16 S; Pulse Ox 99% on R/A; ca1 12:25 BP 142 / 53; Pulse 76; Resp 18 S; Pulse Ox 96% on R/A; ca1 13:30 BP 140 / 50; Pulse 76; Resp 16 S; Pulse Ox 96% on R/A; ca1 14:30 BP 152 / 60; Pulse 76; Resp 15 S; Pulse Ox 98% on R/A; ca1 15:25 BP 134 / 56; Pulse 79; Resp 16 S; Pulse Ox 99% on R/A; ca1 16:44 BP 146 / 56; Pulse 76; Resp 16 S; Pulse Ox 99% on R/A; ca1 17:41 BP 129 / 52; Pulse 79; Resp 18 S; Pulse Ox 100% on R/A; ca1 18:45 BP 145 / 53; Pulse 71; Resp 18 S; Pulse Ox 98% on R/A; ca1 19:42 BP 141 / 51; Pulse 71; Resp 18 S; Pulse Ox 98% on R/A; ca1 09:02 Body Mass Index 25.10 (77.11 kg, 175.26 cm) ca1 MDM: 09:01 Patient medically screened. [facility] 11:34 Data reviewed: vital signs, nurses notes, lab test result(s), radiologic studies, CT jr8 scan. Data interpreted: Pulse oximetry: on room air is 99 %. Interpretation: normal. Counseling: I had a detailed discussion with the patient and/or guardian regarding: the historical points, exam findings, and any diagnostic results supporting the discharge/admit diagnosis, lab results, radiology results, the need for further work-up and treatment in the hospital. ED course: Dr. Huitron consulted and will see patient . 04/24 09:08 Order name: Basic Metabolic Panel; Complete Time: 10:01 [facility] 04/24 09:08 Order name: CBC with Diff; Complete Time: 09:46 [facility] 04/24 09:08 Order name: Hepatic Function; Complete Time: 10:01 jr8 04/24 09:08 Order name: Lipase; Complete Time: 10:01 8 04/24 09:08 Order name: Protime (+inr); Complete Time: 09:47 jr 04/24 09:08 Order name: Ptt, Activated; Complete Time: 09:47 [facility] 04/24 10:01 Order name: CT Abd/Pelvis - Without Contrast; Complete Time: 10:48 [facility] 04/24 10:50 Order name: SARS-COV-2 RT PCR; Complete Time: 11:09 [facility] 04/24 12:01 Order name: CONS Physician Consult [facility] 04/24 09:08 Order name: IV Saline Lock; Complete Time: 09:18 jr8 04/24 09:08 Order name: Labs collected and sent; Complete Time: :18 jr8 Administered Medications: 09:18 Drug: Zofran (Ondansetron) 4 mg Route: IVP; Site: left antecubital; ca1 10:22 Follow up: Response: No adverse reaction; Nausea is decreased; Vomiting decreased ca1 09:22 Drug: morphine 4 mg {Note: rass 0.} Route: IVP; Site: left antecubital; ca1 10:22 Follow up: Response: No adverse reaction; Pain is decreased; RASS: Alert and Calm (0) ca1 10:22 Drug: NS 0.9% 500 ml Route: IV; Rate: bolus; Site: left antecubital; ca1 11:07 Follow up: Response: No adverse reaction; IV Status: Completed infusion; IV Intake: ca1 500ml 11:07 Drug: NS 0.9% 1000 ml Route: IV; Rate: 75 ml/hr; Site: left antecubital; ca1 15:27 Follow up: IV Status: Infusion continued upon admission ca1 Disposition: 04/25 18:13 Co-signature as Attending Physician, Anderson Mcgarry MD I agree with the assessment and kdr plan of care. Disposition Summary: 04/24/21 11:36 Hospitalization Ordered Hospitalization Status: Inpatient Admission jr Provider: Bob Vargas Location: Telemetry/[facility] (Inpatient) jr8 Condition: Stable jr8 Problem: new jr8 Symptoms: have improved jr8 Bed/Room Type: Standard [facility] Room Assignment: 216(04/24/21 19:06) tt3 Diagnosis - Ileus, unspecified jr8 - Abdominal pain, Generalized jr8 - Vomiting jr8 Forms: - Medication Reconciliation Form jr8 - SBAR form jr8 Signatures: Dispatcher [employer] EDMS Anderson Mcgarry MD MD [facility] Eulalio Yeager PA PA jr8 Lizette Casper RN RN ca1 Dick Neumann tt3 Corrections: (The following items were deleted from the chart) 04/24 09:51 09:09 CORONAVIRUS+MR.LAB.BRZ ordered. [facility] EDMS 19:06 11:36 jr8 tt3
--- NOTE | 2021-04-24 12:17 | P.HP ---
Certification for Inpatient Patient admitted to: Inpatient With expected LOS: <2 Midnights Patient will require the following post-hospital care: None Practitioner: I am a practitioner with admitting privileges, knowledge of patient current condition, hospital course, and medical plan of care. Services: Services provided to patient in accordance with Admission requirements found in Title 42 Section 412.3 of the Code of Federal Regulations Patient History Date of Service: 04/24/21 Primary Care Provider: Dr. Anaya Reason for admission: large bowel ileus History of Present Illness: This is an 89 y/o M with HTN, HLD, hypothyroidism who presents today for constant RLQ pain x1 day. Pain started suddenly this morning with several episodes of vomiting and nausea. States he is feeling better now, has not vomited since being in the ER. Last BM was this morning but pt states BM was watery. Denies any chills, fevers, hematemesis. WC 8.5, Hgb 12.3, K 3.2, Cr 2.31 CT abd: Mild dilatation of fluid-filled large bowel having the appearance of an ileus. - Past Medical/Surgical History -: HTN -: HLD -: hypothyroidism Past Surgical History: Patient denies surgical history Psychosocial/ Personal History: lives with daughter - Social History Smoking Status: Never smoker Alcohol use: No CD- Drugs: No Caffeine use: No Physical Examination - Physical Exam General: Alert, Oriented x3, Cooperative HEENT: Atraumatic, Normocephalic, EOMI Neck: Supple Respiratory: Clear to auscultation bilaterally, Normal air movement Cardiovascular: Regular rate/rhythm, Normal S1 S2 Capillary refill: <2 Seconds Gastrointestinal: Hypoactive, Distended, Tenderness (RLQ) Musculoskeletal: Other (bilateral 1+ pitting edema) Integumentary: No rashes Neurological: Normal speech, Normal tone, Normal affect Lymphatics: No axilla or inguinal lymphadenopathy - Studies Laboratory Data (last 24 hrs) 04/24/21 09:15: PT 11.8, INR 1.03, APTT 24.3 04/24/21 09:15: WBC 8.50, Hgb 12.3 L, Hct 37.2 L, Plt Count 230 04/24/21 09:15: Sodium 140, Potassium 3.2 L, BUN 29 H, Creatinine 2.31 H, Glucose 145 H, Total Bilirubin 0.6, AST 26, ALT 34, Alkaline Phosphatase 104, Lipase 137 Assessment and Plan - Plan problem list: abdominal pain, vomiting, nausea secondary to large bowel ileus possible new RAUL on CKDIII hypokalemia HTN HLD hypothyroidism plan: -imaging consistent with ileus -surgery consulted -NPO -pain and nausea control -consider NG tube if worsening symptoms -nephrology consulted with Dr. Anaya since he is also patient's PCP -replete K and monitor BMP -obtain and verify home meds, restart as appropriate VTE: SCDs Code: full Dispo: anticipate dc home in ~24-48h Discharge Plan: Home Plan to discharge in: 48 Hours - Advance Directives Does patient have a Living Will: No Does patient have a Durable POA for Healthcare: No - Code Status/Comfort Care Code Status Assessed: Yes (full) Time Spent Managing Pts Care (In Minutes): 55
[2021-04-24 16:51] VITALS: BMI 25.1
--- NOTE | 2021-04-24 17:18 | CON ---
Date of Consultation: 04/24/2021 Reason For Service: Large bowel ileus, possible obstruction. History Of Present Illness: This is a case of an 89-year-old patient, comes to us complaining of mil d abdominal distention, nausea, vomiting, found to have an abdominal distention with dilated large js wel loops with no specific etiology. A surgical consult was obtained for evaluation. Most of the in formation is obtained from the chart. He gave some information, although he does not remember the de tails like his last colonoscopy. Past Medical History: Hypertension, hypothyroidism. Past Surgical History: He does not recall any. He is not sure if he had a colonoscopy done before. Social History: He does not smoke. He does drink alcohol. Review of Systems: Once again, the patient stated nausea and vomiting. No dysuria, hematuria, hematochezia or melena, f flynn or chills. No recent traveling out of the country. No family member sick at home. Physical Examination: General: The patient is awake, alert. HEENT: Pupils are equal, reactive, anicteric. Neck: Supple. Chest: Clear. Abdomen: Soft and depressible. No guarding or rebound. No peritoneal signs. Mild generalized dist ention and tenderness, but no peritonitis. Extremities: Good capillary refill. Laboratory Data: Blood work shows WBC count of 8 with hemoglobin of 12. INR of 1.03. Creatinine is 2.3. Chloride is 106. Imaging: CAT scan of abdomen and pelvis interpreted by Dr. Mckoy as several dilated loop of large bowel, unknown etiology. Assessment: This is an 89-year-old patient with an abdominal distention, found to have dilatation of large bowel with unknown etiology. We going to keep him at bowel rest. At this moment has no perit onitis. Trying to investigate if he had a previous colonoscopy or not with the family members. Will continue conservative treatment. HM/MODL Voice ID: [id number] Report ID: [id number]
[2021-04-24] MEDS ORDERED: KCL 20 MEQ/100 mL IVPB 20 MEQ/100 ML BAG IV SCH (20:04)
[2021-04-24] MEDS ORDERED: NA CHLORIDE 0.9% 1,000 ML IV SCH (20:04)
--- NOTE | 2021-04-24 21:25 | P.CNS ---
Date of Consult: 04/24/21 Reason for Consult: RAUL/ CKD Requesting Physician: Bob Vargas Primary Care Provider: Dr. Anaya Chief Complaint: large bowel ileus History of Present Illness: This is an 89 y/o M with HTN, HLD, hypothyroidism who presents today for constant RLQ pain x1 day. Pain started suddenly this morning with several episodes of vomiting and nausea. States he is feeling better now, has not vomited since being in the ER. Last BM was this morning but pt states BM was watery. Denies any chills, fevers, hematemesis. 09:31 This 89 yrs old Black Male presents to ER via EMS with complaints of Abdominal Pain, jr8 Abdominal Distention. 09:31 The patient presents with abdominal pain Right midabdomen. Onset: The symptoms/episode jr8 began/occurred acutely, this morning. The symptoms do not radiate. Associated signs and symptoms: Pertinent positives: nausea, vomiting, and diarrhea. The symptoms are described as stabbing. Modifying factors: The symptoms are alleviated by nothing, the symptoms are aggravated by movement. Severity of pain: At its worst the pain was moderate in the emergency department the pain is unchanged. The patient has not experienced similar symptoms in the past. The patient has not recently seen a physician. Allergies iodine Adverse Reaction (Verified 04/24/21 21:08) Hives/Rash Home medications list reviewed: Yes - Past Medical/Surgical History -: HTN -: HLD -: hypothyroidism Psychosocial/ Personal History: lives with daughter - Social History Alcohol use: No CD- Drugs: No Caffeine use: No Review of Systems 10-point ROS is otherwise unremarkable General: Weakness, Malaise Gastrointestinal: Abdominal Pain Physical Examination Temp Pulse Resp BP Pulse Ox 97.8 F 71 18 141/51 H 04/24/21 09:02 04/24/21 19:42 04/24/21 19:42 04/24/21 19:42 General: In no apparent distress, Cooperative HEENT: Atraumatic Neck: Supple Respiratory: Clear to auscultation bilaterally Cardiovascular: No edema, Regular rate/rhythm Gastrointestinal: Distended, Tenderness Musculoskeletal: No clubbing, No contractures Integumentary: No rashes, No cyanosis Neurological: Normal speech Laboratory Data (last 24 hrs) 04/24/21 09:15: PT 11.8, INR 1.03, APTT 24.3 08/06/21 09:15: WBC 8.50, Hgb 12.3 L, Hct 37.2 L, Plt Count 230 04/24/21 09:15: Sodium 140, Potassium 3.2 L, BUN 29 H, Creatinine 2.31 H, Glucose 145 H, Total Bilirubin 0.6, AST 26, ALT 34, Alkaline Phosphatase 104, Lipase 137 Imagings Data: EXAM DESCRIPTION: CT - Abdomen Pelvis Wo Contrast - 04/24/2021 10:13 am CLINICAL HISTORY: Abdominal pain COMPARISON: 2019 TECHNIQUE: Computed axial tomography of the abdomen and pelvis was obtained. IV and oral contrast were not requested. All CT scans are performed using dose optimization technique as appropriate and may include automated exposure control or mA/KV adjustment according to patient size. FINDINGS: The evaluation of solid organs, vessels and bowel is limited secondary to the lack of contrast administration. Hepatic and splenic granulomata. The pancreas and adrenals appear grossly normal. Several right renal cysts. The largest measures 6 centimeters. Mild dilatation of the colon having the appearance of an ileus. Fluid is present within large and small bowel. Normal appendix. Prostate gland is moderately to markedly enlarged. A Hancock catheter has its tip pushing against the superior wall of the bladder. No evidence of diverticulitis. Moderate right and small to moderate left inguinal hernias contain fat Small hiatal hernia IMPRESSION: Mild dilatation of fluid-filled large bowel having the appearance of an ileus. A Hancock catheter has its tip pushing against the superior wall of the bladder. Conclusions/Impression: RAUL likely due to hypovolemia CKD III -No NSAIDs -Change IVF 1/2NS Hypokalemia -Replete potassium HTN with CKD -Monitor BP IFG -Check A1C Anemia in chronic illness -Monitor H&H Large bowel ileus -NPO -Follow up with surgery Case reviewed with Dr. Vargas Thank you kindly for the consultation.
[2021-04-24] MEDS: NACHLORIDE 0.45% 1,000 ML IV SCH (23:08)
[2021-04-25 03:10] LABS: Urine Appearance CLOUDY (Clear); Urine Bilirubin NEGATIVE (Negative); Urine Blood 3+ (Negative); Urine Color YELLOW (Yellow); Urine Glucose NEGATIVE (Negative); Urine Protein TRACE (Negative); Urine Specific Gravity 1.015 (1.005-1.030); Urine pH 5.5 (5.0-7.0)
[2021-04-25 03:13] LABS: Urine Microscopic Reflex ORDER UMIC
[2021-04-25 03:24] LABS: Urine Bacteria LOADED /HPF (NONE SEEN); Urine Mucus 2+ /HPF (NONE SEEN); Urine Yeast FEW (NONE SEEN)
[2021-04-25 07:22] LABS: Absolute Lymphocytes (CBC) 1.3 K/uL (0.7-4.9); Basophils % 0.3 % (0-1.3); Hematocrit 36.2 % (39.6-49.0); Lymphocytes % 9.2 % (15.3-44.8); MPV 8.8 fL (7.6-11.3); RBC Red Blood Cell Count 4.22 M/uL (4.33-5.43)
[2021-04-25 07:39] LABS: Magnesium 2.1 mg/dL (1.8-2.4); Phosphorus 3.1 mg/dL (2.5-4.9); Potassium 3.4 mmol/L (3.5-5.1); Thyroid Stimulating Hormone 0.955 uIU/mL (0.360-3.740); Uric Acid 8.7 mg/dL (3.5-7.2)
[2021-04-25] MEDS: KCL 20 MEQ/100 mL IVPB 20 MEQ/100 ML BAG IV SCH ×2 (09:24→15:42)
[2021-04-25] MEDS: NACHLORIDE 0.45% 1,000 ML IV SCH ×2 (09:24→20:11)
[2021-04-25] MEDS: CEFTRIAXONE/SWI 1gm 1 GM/10 ML SYR IV SCH (09:25)
--- NOTE | 2021-04-25 10:46 | RAD REPORT ---
EXAM DESCRIPTION: RAD - Abdomen Acute Series - 04/25/2021 9:53 am CLINICAL HISTORY: eval ileus COMPARISON: Abdomen Pelvis Wo Contrast dated 04/24/2021 FINDINGS: Similar dilated small bowel and colon compared with 04/24/2021. Visualized lungs are clear . No free air. No abnormal calcifications. No fractures are seen and. IMPRESSION: Persistent colonic and small bowel dilatation which may reflect an ileus and is grossly similar to the CT dated 04/24/2021.
--- NOTE | 2021-04-25 12:56 | PN ---
Subjective: The patient is seen in room 216 at [facility] at [facility]. The patient is alert, awake, and looks comfortable. He is not on oxygen, breathing comfortably, O2 sats are good in mid 90s. He denies any pain currently. He says that he just started passing gas and grazyna t has relieved him a little bit and he is feeling better. His discomfort has improved. He has not h ad any nausea or vomiting overnight. Objective: Vital Signs: Show blood pressure 146/65, last pulse in the 80 range and regular, respira tions around 14. He is afebrile, O2 sats are 95% on room air. Lungs: Clear to auscultation. Abdomen: Soft without discomfort. Slight distention. Extremities: Reveal no edema. Neuro: The patient is alert, awake and able to answer questions. Denies any pain. Laboratory Data: Reviewed. His WBC is 14.6, hemoglobin 11.8, hematocrit 36.2, platelet count of 204 . Chemistry shows sodium 141, potassium 3.4, chloride 108, bicarb 25, BUN 23, creatinine 1.76, uric acid level slightly elevated at 8.7, calcium at about 8.3. Assessment And Plan: 1.The patient with prerenal azotemia, acute kidney injury on chronic kidney disease, has not followe d up with Dr. Anaya in some time. I advised him to keep his appointments and followup post dischar ge to evaluate for residual renal function. Kidney function is improving. Continue IV fluids while the patient is n.p.o. 2.Bowel obstruction, question of functional. The patient is beginning to pass gas now. Hopefully, this will improve with conservative management. Surgery is following as well. Question if patient h as had old colonoscopy in the past. The patient does not recall having colonoscopy in the past few y ears. 3.Hypokalemia. Repletion on going. Check with BMP again tomorrow. 4.Slight elevation of WBC. The patient question with colitis, question other sources. At this poin t, he is negative for COVID. He has had urine test done that is pending. He is on medications with ceftriaxone and clinically looking stable, afebrile and alert and comfortable. Continue to monitor c losely. If the patient's bowels improve and he stabilizes and gets discharged, he should be followin g up with Dr. Anaya to further monitor and assess his kidney function, to see where it is settling. The patient does have history of chronic kidney disease, but seems to have some acute kidney injury on top of that that may be related to his prerenal azotemia and that is already improving with fluid s. /FEDE Voice ID: [id number] Report ID: [id number]
[2021-04-25] MEDS: METRONIDAZOLE 500mg IVPB 500 MG/100 ML BAG IV SCH ×2 (14:23→17:49)
--- NOTE | 2021-04-25 15:57 | P.PN ---
Subjective Date of Service: 04/25/21 Primary Care Provider: Dr. Anaya Chief Complaint: large bowel ileus states he is feeling much better and has no more pain. has not passed gas or had a BM yet. denies any vomiting. <Charisse Allison - Last Filed: 04/25/21 15:52> Date of Service: 04/25/21 <Bob Vargas - Last Filed: 04/25/21 20:34> Review of Systems 10-point ROS is otherwise unremarkable <Bob Vargas - Last Filed: 04/25/21 20:34> Physical Examination - Vital Signs Temperature: 98.4 F Blood Pressure: 126/58 Pulse: 84 Respirations: 14 Pulse Ox (%): 98 <Charisse Allison - Last Filed: 04/25/21 15:52> Assessment And Plan Physician Review: Patient Assessed, Agree with Above Assessment and Plan Physician Review Additional Text: physical exam: General: alert and oriented, NAD, cooperative HEENT: clear conjunctiva. EOMI Pulm: nonlabored respirations CV: regular rate and rhythm Abd: tenderness has improved. still appears distended MSK: no swelling Neuro: moving all extremities problem list: abdominal pain, vomiting, nausea secondary to large bowel ileus acute catheter associated urinary tract infection possible new RAUL on CKDIII hypokalemia HTN HLD hypothyroidism plan: -imaging consistent with ileus -continue IV antibiotics. urine cultures pending. -surgery recommended conservative treatment and bowel rest. -continue NPO. can start diet once patient passes gas or has BM -pain and nausea control -consider NG tube if worsening symptoms -nephrology consulted with Dr. Anaya since he is also patient's PCP -replete K and monitor BMP -obtain and verify home meds, restart as appropriate VTE: SCDs Code: full Dispo: anticipate dc home in ~24-48h Time Spent Managing PTS Care (In Minutes): 35 <Charisse Allison - Last Filed: 04/25/21 15:52> Physician Review Additional Text: Patient seen and examined this morning with Charisse Allison. Plan of care discussed as noted above. patient with h/o enlarged prostate with chronic carpenter catheter UA grossly concerning for UTI, which should be covered with current antibiotics Gen: NAD, HEENT: normal conjunctiva, sclera anicteric; CV: RRR; Pulm: clear to auscultation, nonlabored on room air; abd: mild distention with mild tenderness NPO, IVF <Bob Vargas - Last Filed: 04/25/21 20:34>
[2021-04-25] MEDS ORDERED: KCL 20 MEQ/100 mL IVPB 20 MEQ/100 ML BAG IV SCH (16:00)
--- NOTE | 2021-04-25 18:19 | PN ---
Date of Progress Note: 04/25/2021 Diagnosis: Colonic distention. Subjective: The patient is doing better. He feels better. He says it is less abdominal discomfort. He has not had a bowel movement yet. He thinks he passed some gas. Objective: Chest: Clear. Abdomen: Soft and depressible. X-rays have not changed much from the CT scan. Plan: Continue conservative treatment, bowel rest, may consider gastrointestinal consult. ROSALINA/FEDE Voice ID: [id number] Report ID: [id number]
[2021-04-26] MEDS: METRONIDAZOLE 500mg IVPB 500 MG/100 ML BAG IV SCH ×3 (00:11→17:21)
[2021-04-26 06:25] LABS: Albumin 2.5 g/dL (3.4-5.0); Bilirubin Total 0.8 mg/dL (0.2-1.0); Potassium 3.5 mmol/L (3.5-5.1); Protein, Total 6.3 g/dL (6.4-8.2)
[2021-04-26 07:27] LABS: Absolute Lymphocytes (CBC) 1.5 K/uL (0.7-4.9); Basophils % 0.2 % (0-1.3); Hematocrit 35.4 % (39.6-49.0); Lymphocytes % 14.5 % (15.3-44.8); MPV 9.5 fL (7.6-11.3); RBC Red Blood Cell Count 4.13 M/uL (4.33-5.43)
[2021-04-26] MEDS ORDERED: KCL 20 MEQ/100 mL IVPB 20 MEQ/100 ML BAG IV SCH (08:00)
[2021-04-26] MEDS: NACHLORIDE 0.45% 1,000 ML IV SCH ×2 (09:34→20:47)
[2021-04-26] MEDS: CEFTRIAXONE/SWI 1gm 1 GM/10 ML SYR IV SCH (09:44)
--- NOTE | 2021-04-26 10:20 | RAD REPORT ---
EXAM DESCRIPTION: RAD - Abdomen 1 View (KUB) - 04/26/2021 9:56 am CLINICAL HISTORY: f/u ileus COMPARISON: Abdomen Pelvis Wo Contrast dated 04/24/2021; Abdomen Acute Series dated 04/25/2021 FINDINGS: Similar diffuse small bowel and colonic dilatation. No acute osseous abnormality.Visualize d lungs are unremarkable.No abnormal calcifications. IMPRESSION: Similar diffuse small bowel and colonic dilatation compared with 04/25/2021.
--- NOTE | 2021-04-26 16:30 | P.PN ---
Subjective Date of Service: 04/26/21 Primary Care Provider: Dr. Anaya Chief Complaint: large bowel ileus Subjective: Improving (states he is feeling pretty good. has been passing gas and had a BM this morning. denies any n/v/pain. just feels very hungry) <Charisse Allison - Last Filed: 04/26/21 18:05> Date of Service: 04/26/21 <Bob Vargas - Last Filed: 04/26/21 20:41> Review of Systems 10-point ROS is otherwise unremarkable <Bob Vargas - Last Filed: 04/26/21 20:41> Physical Examination - Vital Signs Temperature: 97.5 F Blood Pressure: 150/67 Pulse: 73 Respirations: 12 Pulse Ox (%): 96 <Charisse Allison - Last Filed: 04/26/21 18:05> Assessment And Plan Physician Review: Patient Assessed, Agree with Above Assessment and Plan Physician Review Additional Text: physical exam: General: alert and oriented, NAD, pleasant HEENT: clear conjunctiva. EOMI Pulm: CTAB CV: regular rate and rhythm Abd: mild distention with no tenderness MSK: no swelling Neuro: moving all extremities problem list: abdominal pain, vomiting, nausea secondary to large bowel ileus acute catheter associated urinary tract infection possible new RAUL on CKDIII hypokalemia HTN HLD hypothyroidism plan: -imaging consistent with ileus -surgery recommended conservative treatment and bowel rest -pt passed gas and had BM before KUB was done. KUB remains the same, will continue NPO -will consider GI consult if worsening sx or no improvement -pain and nausea control -consider NG tube if worsening symptoms -renal function improving, continue IVF -nephrology consulted -UA grossly concerning for UTI, which should be covered with current antibiot ics. cultures pending. -patient with h/o enlarged prostate with chronic carpenter catheter -replete K and monitor BMP -obtain and verify home meds, restart as appropriate VTE: SCDs Code: full Dispo: anticipate dc home in ~24-48h Time Spent Managing PTS Care (In Minutes): 35 <Charisse Allison - Last Filed: 04/26/21 18:05> Physician Review Additional Text: Patient seen and examined with Charisse Allison. Plan of care discussed and agree as noted above. unchanged KUB - done after pt reportedly had small BM - remains the same as previous. pt also with some distention on exam continue bowel rest, IVF continue rocephin flagyl - for possible abdominal source and will cover for UTI <Bob Vargas - Last Filed: 04/26/21 20:41>
[2021-04-27] MEDS: ONDANSETRON 4 MG/2 ML VIAL IV PRN (00:45)
[2021-04-27] MEDS: METRONIDAZOLE 500mg IVPB 500 MG/100 ML BAG IV SCH ×3 (00:47→17:48)
[2021-04-27 05:37] LABS: Absolute Lymphocytes (CBC) 1.3 K/uL (0.7-4.9); Basophils % 0.5 % (0-1.3); Hematocrit 34.9 % (39.6-49.0); Lymphocytes % 14.8 % (15.3-44.8); MPV 8.8 fL (7.6-11.3); RBC Red Blood Cell Count 4.09 M/uL (4.33-5.43)
[2021-04-27 05:47] LABS: Potassium 3.8 mmol/L (3.5-5.1)
--- NOTE | 2021-04-27 07:04 | P.PN ---
Subjective Date of Service: 04/27/21 Primary Care Provider: Dr. Anaya Chief Complaint: large bowel ileus had an episode of nausea last night but feels better today. had another BM this morning. denies pain, just hungry <Charisse Allison - Last Filed: 04/27/21 16:36> Date of Service: 04/27/21 <Bob Vargas - Last Filed: 04/27/21 20:58> Review of Systems 10-point ROS is otherwise unremarkable <Charisse Allison - Last Filed: 04/27/21 16:36> Physical Examination - Vital Signs Temperature: 97.4 F Blood Pressure: 153/66 Pulse: 97 Respirations: 16 Pulse Ox (%): 98 <Charisse Allison - Last Filed: 04/27/21 16:36> Assessment And Plan - Plan physical exam: General: alert and oriented, NAD, pleasant, cooperative HEENT: clear conjunctiva. EOMI Pulm: breathing comfortably CV: regular rate and rhythm Abd: hypoactive bowel sounds. mild distention with no tenderness MSK: no swelling Neuro: normal speech problem list: abdominal pain, vomiting, nausea secondary to large bowel ileus acute catheter associated urinary tract infection possible new RAUL on CKDIII hypokalemia HTN HLD hypothyroidism plan: -pt had another BM this morning but KUB still with no changes -trial of mineral oil to help ileus -continue bowel rest -imaging consistent with ileus -surgery consulted -will consider GI consult if worsening symptoms -pain and nausea control -consider NG tube if worsening symptoms -renal function continuing to improve, continue IVF -nephrology consulted -UA grossly concerning for UTI. final cultures show staph epidermidis -will switch rocephin to doxycycline and continue flagyl for possible abdominal source -ID consulted -patient with h/o enlarged prostate with chronic carpenter catheter -replete K and monitor BMP -obtain and verify home meds, restart as appropriate -updated patient's daughter, Cynthia today VTE: SCDs Code: full Physician Review: Patient Assessed, Agree with Above Assessment and Plan Physician Review Additional Text: Patient seen and examined with Charisse Allison. Plan of care discussed and agree as noted above. unchanged KUB - done after pt reportedly had small BM - remains the same as previous. pt also with some distention on exam continue bowel rest, IVF continue rocephin flagyl - for possible abdominal source and will cover for UTI Time Spent Managing PTS Care (In Minutes): 35 <Charisse Allison - Last Filed: 04/27/21 16:36>
[2021-04-27] MEDS ORDERED: KCL 20 MEQ/100 mL IVPB 20 MEQ/100 ML BAG IV SCH (08:00)
--- NOTE | 2021-04-27 09:50 | RAD REPORT ---
EXAM DESCRIPTION: RAD - Abdomen 1 View (KUB) - 04/27/2021 9:40 am CLINICAL HISTORY: Abdomen pain. FINDINGS: Mild dilatation of large and small bowel with out significant change presumably an ileus.
[2021-04-27] MEDS: NACHLORIDE 0.45% 1,000 ML IV SCH ×4 (10:00→19:55)
[2021-04-27] MEDS: CEFTRIAXONE/SWI 1gm 1 GM/10 ML SYR IV SCH (10:04)
[2021-04-27] MEDS ORDERED: MINERAL OIL 30 ML UCUP PO ONE ×2 (10:30→20:00)
--- NOTE | 2021-04-27 15:04 | P.PN ---
Subjective Date of Service: 04/27/21 Primary Care Provider: Dr. Anaya Chief Complaint: large bowel ileus Review of Systems 10-point ROS is otherwise unremarkable Physical Examination - Vital Signs Temperature: 98.5 F Blood Pressure: 156/66 Pulse: 72 Respirations: 16 Pulse Ox (%): 98 Assessment And Plan Physician Review: Patient Assessed, Agree with Above Assessment and Plan Physician Review Additional Text: x Time Spent Managing PTS Care (In Minutes): 35
--- NOTE | 2021-04-27 17:24 | PN ---
Subjective: The patient seen in Room 216 at [facility]. He is an 89-year-old miriam ahumada, who is alert, awake, able to talk in full sentences, comfortable. The patient says that he has b een having bowel movements. He had a bowel movement this morning. He denies any headache, nausea, v omiting. He states he is hungry and wants to eat something. He is currently n.p.o. due to his ileus , which seems to be improving. Objective: Vital Signs: His blood pressure is reasonable with readings on my exam around 142/65, pu lse 77 and regular, respirations around 14-16. He is afebrile. His O2 sats are around 95% to 98% on room air. Lungs: His lungs are clear to auscultation. Abdomen: Soft. Extremities: Do not reveal any edema. Laboratory Data: Reviewed. Labs show WBC count of 8.7, hemoglobin 11.6, hematocrit 34.9, platelet c ount of 226. Chemistry shows sodium 141, potassium 3.8, chloride 108, bicarb 21, BUN 17, creatinine improved from yesterday when it was 1.58 to 1.36 today. Two days ago, creatinine was 1.76 and on adm ission the creatinine was 2.3 once the patient has been consistently and slowly improving from the cr eatinine and renal point of view. TSH on April 25 was 0.955, free T4 at 1.34. His prolactin level was 0.51 on and now it is down to 0.34. His C-reactive protein has stayed elevated around 145, 155 yesterday. His albumin is 2.5. Assessment And Plan: 1.The patient with some chronic kidney disease with acute kidney injury, presents with question of i leushaheed. At this point, he is improving. He has had a bowel movement this morning. He is passing gas. His abdomen is soft. He denies any nausea, vomiting. He is interested in eating, but opinion from Surgery and our primary team is pending to see if the patient can be started on some form of diet. He is currently on IV fluids, which I think should be continued while he is kept n.p.o. We will swit ch his IV fluids to half-normal saline at 75 mL an hour. This can be decreased or discontinued once the patient is able to take full p.o. intake. 2.Hypokalemia, resolved. 3.Slight elevation of WBCs, resolved. 4.Bowel obstruction with question of functional ileus. At this point, this seems to be improving. The patient is passing gas and has had another bowel movement this morning. He does not have any lisa sea, vomiting, and is comfortable on physical exam. 5.Acute kidney injury likely secondary to prerenal azotemia, improving. Continue gentle volume repl etion. Repeat BMP in the morning. /FEDE Voice ID: [id number] Report ID: [id number]
[2021-04-27] MEDS: DOXYCYCLINE 100 MG in NA CHLORIDE 0.9% 100 ML IVPB SCH (19:56)
[2021-04-28] MEDS: METRONIDAZOLE 500mg IVPB 500 MG/100 ML BAG IV SCH ×3 (00:07→16:33)
[2021-04-28] MEDS: NACHLORIDE 0.45% 1,000 ML IV SCH ×2 (01:28→13:55)
[2021-04-28 05:45] LABS: Potassium 3.6 mmol/L (3.5-5.1)
[2021-04-28] MEDS: DOXYCYCLINE 100 MG in NA CHLORIDE 0.9% 100 ML IVPB SCH ×2 (08:10→20:18)
[2021-04-28] MEDS ORDERED: KCL 20 MEQ/100 mL IVPB 20 MEQ/100 ML BAG IV SCH (09:00)
--- NOTE | 2021-04-28 09:56 | RAD REPORT ---
EXAM DESCRIPTION: RAD - Abdomen 1 View (KUB) - 04/28/2021 9:35 am CLINICAL HISTORY: f/u ileus COMPARISON: Abdomen 1 View (KUB) dated 04/27/2021; Abdomen 1 View (KUB) dated 04/26/2021; Abdomen Pelv is Wo Contrast dated 04/24/2021 FINDINGS: Prominent air distended colon is seen with distended to mildly dilated air-filled small js wel loops. No free air or pneumatosis are identifiable. No new or suspicious calcification pattern. O verall bowel gas pattern is not clearly different from the April 27 study. No significant bony findings IMPRESSION: Air distended colon with distended to mildly dilated air-filled small bowel pattern. Fin dings are not clearly different from April 27 imaging. No free air or pneumatosis have developed. Findings continue to favor ileus over obstruction.
--- NOTE | 2021-04-28 11:34 | P.CNS ---
Date of Consult: 04/28/21 Primary Care Provider: Dr. Anaya Chief Complaint: large bowel ileus History of Present Illness: Patient is an 89-year-old male with a past medical history of hypertension, hyperlipidemia, hyperthyroidism, prostate enlargement who presented to the emergency department due to right lower quadrant pain and that having going on for a day prior to admission. Patient had several episodes of vomiting and nausea. KUB and abdominal/pelvis CT confirmed large bowel old ileus. Patient also with a grossly positive urinalysis with culture growing Staph epidermis. Patient has history of enlarged prostate with chronic Hancock catheter. Patient was initially paced on Rocephin and switch to doxycycline based off of susceptibility report. Patient also parade placed on probiotic. Patient currently denies nausea, vomiting, diarrhea. Allergies iodine Adverse Reaction (Verified 04/24/21 21:08) Hives/Rash Home Medications: Aspirin [Aspirin EC 81 MG] 81 mg PO DAILY 04/24/21 Atorvastatin Calcium 40 mg PO BEDTIME 04/24/21 Levothyroxine Sodium [Levothyroxine] 75 mcg PO DAILY 04/24/21 Quinapril/Hydrochlorothiazide [Quinapril-Hctz 20-25 mg Tab] 1 tab PO DAILY 04/24/21 - Past Medical/Surgical History -: HTN -: HLD -: hypothyroidism Psychosocial/ Personal History: lives with daughter - Social History Alcohol use: No CD- Drugs: No Caffeine use: No Review of Systems 10-point ROS is otherwise unremarkable Physical Examination Temp Pulse Resp BP Pulse Ox 97.9 F 75 18 149/65 H 97 04/28/21 09:00 04/28/21 09:00 04/28/21 09:00 04/28/21 09:00 04/28/21 09:00 General: Alert, In no apparent distress, Oriented x3 HEENT: Atraumatic, Normocephalic, Other Neck: 2+ carotid pulse no bruit Respiratory: Clear to auscultation bilaterally, Normal air movement Cardiovascular: No edema, Normal pulses, Regular rate/rhythm Capillary refill: <2 Seconds Gastrointestinal: Other (Distended, dull to percussion in all 4 quadrants. Patient denies tenderness.) Musculoskeletal: No clubbing, No swelling, No contractures Integumentary: No rashes, No breakdown, No significant lesion Neurological: Normal gait, Normal speech Urinary: Hancock catheter Laboratory Last Values WBC 8.50 K/uL (4.3-10.9) 04/24/21 09:15 RBC 4.37 M/uL (4.33-5.43) 04/24/21 09:15 Hgb 12.3 g/dL (13.6-17.9) L 04/24/21 09:15 Hct 37.2 % (39.6-49.0) L 04/24/21 09:15 MCV 85.2 fL (80-100) 04/24/21 09:15 MCH 28.2 pg (27.0-35.0) 04/24/21 09:15 MCHC 33.1 g/dL (32.0-36.0) 04/24/21 09:15 RDW 16.5 % (12.1-15.2) H 04/24/21 09:15 Plt Count 230 K/uL (152-406) 04/24/21 09:15 MPV 8.7 fL (7.6-11.3) 04/24/21 09:15 Neutrophils % 77.7 % (41.7-73.7) H 04/24/21 09:15 Lymphocytes % 14.6 % (15.3-44.8) L 04/24/21 09:15 Monocytes % 6.9 % (3.3-12.3) 04/24/21 09:15 Eosinophils % 0.4 % (0-4.4) 04/24/21 09:15 Basophils % 0.4 % (0-1.3) 04/24/21 09:15 Absolute Neutrophils 6.6 K/uL (1.8-8.0) 04/24/21 09:15 Absolute Lymphocytes 1.2 K/uL (0.7-4.9) 04/24/21 09:15 Absolute Monocytes 0.6 K/uL (0.1-1.3) 04/24/21 09:15 Absolute Eosinophils 0.0 K/uL (0-0.5) 04/24/21 09:15 Absolute Basophils 0.0 K/uL (0-0.5) 04/24/21 09:15 PT 11.8 SECONDS (9.5-12.5) 04/24/21 09:15 INR 1.03 04/24/21 09:15 APTT 24.3 SECONDS (24.3-36.9) 04/24/21 09:15 Sodium 140 mmol/L (136-145) 04/24/21 09:15 Potassium 3.2 mmol/L (3.5-5.1) L 04/24/21 09:15 Chloride 106 mmol/L (98-107) 04/24/21 09:15 Carbon Dioxide 24 mmol/L (21-32) 04/24/21 09:15 BUN 29 mg/dL (7-18) H 04/24/21 09:15 Creatinine 2.31 mg/dL (0.55-1.3) H 04/24/21 09:15 Estimated GFR 32 mL/min (=/>90) L 04/24/21 09:15 Glucose 145 mg/dL (74-106) H 04/24/21 09:15 Calcium 9.0 mg/dL (8.5-10.1) 04/24/21 09:15 Total Bilirubin 0.6 mg/dL (0.2-1.0) 04/24/21 09:15 Direct Bilirubin 0.2 mg/dL (0-0.2) 04/24/21 09:15 AST 26 U/L (15-37) 04/24/21 09:15 ALT 34 U/L (12-78) 04/24/21 09:15 Alkaline Phosphatase 104 U/L (45-117) 04/24/21 09:15 Serum Total Protein 7.5 g/dL (6.4-8.2) 04/24/21 09:15 Albumin 3.6 g/dL (3.4-5.0) 04/24/21 09:15 Globulin 3.9 g/dL (2.3-3.5) H 04/24/21 09:15 Albumin/Globulin Ratio 0.9 (1.1-1.8) L 04/24/21 09:15 Lipase 137 U/L (73-393) 04/24/21 09:15 SARS-CoV-2 RNA (RT-PCR) Negative (NEGATIVE) 04/24/21 09:25 Conclusions/Impression: Antibiotics: doxycycline Start: 04/27 Stop: 05/04 Assessment: -UTI -large bowel ileus -history of enlarged prostate with chronic Hancock -RAUL on CKD stage 3 -anemia Plan: -urine culture performed on 04/25 growing Staph be sensitive to tetracyclines. Patient placed on doxycycline on 04/27, continue for total antibiotic duration of 7 days. Patient also placed on probiotic. -continue bowel rest. Metronidazole prophylactically started on 04/25 -medical management per primary team -continue monitor CBC and BMP -continue to monitor for signs infection Plan of care discussed with Dr. taylor Thank you for consultation
--- NOTE | 2021-04-28 15:50 | PN ---
Date of Progress Note: 04/28/2021 Subjective: The patient is alert, awake and comfortable. He does have some bowel sounds today, more clearly heard on the right lower quadrant, but still the bowel sounds are hypoactive. He has had 2 bowel movements yesterday. He says it is normal for him to go to the bathroom every 2-3 days, so he has not gone today, but he is not uncomfortable and does not think that the thing is normal for him. He denies any nausea, vomiting. Denies any pain currently. Denies any headache. Objective: Vital Signs: His blood pressures have been reasonable with last reading yesterday at abo ut 140/64. His blood pressure today was 149/65. Pulse about 70-80 and regular. On my exam, it is a bout 70. Respirations around 14-16 and comfortable. He is afebrile. O2 sats are 97% to 100% on jac m air. Lungs: Clear to auscultation. Abdomen: Soft. Extremities: Do not reveal any edema. Laboratory Data: Reviewed. Labs show improvement from yesterday with sodium at 141, potassium 3.6, chloride 110, bicarb 23, BUN at 14, and creatinine down to 1.34. His hemoglobin is 11.6, hematocrit 34.9, WBC count of 8.7. His platelet count is in the 200 range. Assessment And Plan: The patient with acute kidney injury in the setting of ileus, now seems to have improved. Question if the patient can be started on some clear liquid diet and see if he can tolera te that. He has had bowel movements. He has some gas. He is not having any nausea, vomiting, or an y pain currently. The patient also has had Surgery followup at this visit. His volume status is imp roving. While he is n.p.o., we would continue gentle IV, volume repletion. He is on half-normal jose ine at that time. At this time, this can be continued. Once the patient is able to take p.o. intake , this can be discontinued. I have advised the patient to make sure he keeps appointment with his accountant machine processing, Dr Real Anaya upon discharge. /FEDE Voice ID: [id number] Report ID: [id number]
--- NOTE | 2021-04-28 16:02 | P.PN ---
Subjective Date of Service: 04/28/21 Primary Care Provider: Dr. Anaya Chief Complaint: large bowel ileus Physical Examination - Vital Signs Temperature: 98.2 F Blood Pressure: 148/67 Pulse: 71 Respirations: 15 Pulse Ox (%): 98 Assessment And Plan Physician Review: Patient Assessed, Agree with Above Assessment and Plan
--- NOTE | 2021-04-28 16:14 | P.PN ---
Subjective Date of Service: 04/28/21 Primary Care Provider: Dr. Anaya Chief Complaint: large bowel ileus Patient has no complain. Patient reported to have 2 bowel movement yesterday. Blood cultures growing coagulase negative Staph, Urine culture grew Staph epidermidis. Physical Examination - Vital Signs Temperature: 98.2 F Blood Pressure: 148/67 Pulse: 71 Respirations: 15 Pulse Ox (%): 98 - Physical Exam General: Alert, In no apparent distress, Oriented x3 HEENT: Mucous membr. moist/pink Neck: JVD not distended Respiratory: Clear to auscultation bilaterally, Normal air movement Cardiovascular: Regular rate/rhythm, Normal S1 S2 Gastrointestinal: Normal bowel sounds, Soft and benign, Non-distended, Distended Musculoskeletal: No swelling Integumentary: No rashes Neurological: Normal strength at 5/5 x4 extr Assessment And Plan - Plan Diagnosis Large bowel ileus acute catheter associated urinary tract infection RAUL on CKDIII hypokalemia HTN HLD hypothyroidism Gram positive bacteremia plan: -patient having a bowel movement but KUB demonstrate dilated colon. -most recent KUB with minimal stool. No obstruction. -colonic ileus likely chronic. -start clear liquid diet -surgery input appreciated. -case discussed with GI-Dr. Jerome will see patient in the office for arrangement for colonoscopy. -patient currently asymptomatic. -renal function improved. I suspect patient is currently at baseline. Patient on IV fluid. -discontinue IV fluid once he is able to tolerate p.o. -nephrology is following. -UA grossly concerning for UTI. final cultures show staph epidermidis. -1 blood culture bottle also growing coagulase negative Staph. -continue doxycycline and flagyl -ID input appreciated. -patient with h/o enlarged prostate with chronic indwelling Hancock. -optimize potassium. Keep potassium level around 4. Physician Review: Patient Assessed, Agree with Above Assessment and Plan
[2021-04-28] MEDS: LACTOBACILLUS/ACIDOPHILUS TAB PO SCH (20:17)
[2021-04-28] MEDS: ONDANSETRON 4 MG/2 ML VIAL IV PRN (20:22)
[2021-04-29] MEDS: METRONIDAZOLE 500mg IVPB 500 MG/100 ML BAG IV SCH ×3 (01:27→16:31)
[2021-04-29] MEDS: NACHLORIDE 0.45% 1,000 ML IV SCH (04:58)
[2021-04-29 05:45] LABS: Potassium 3.6 mmol/L (3.5-5.1)
[2021-04-29] MEDS ORDERED: KCL 20 MEQ/100 mL IVPB 20 MEQ/100 ML BAG IV SCH (06:00)
[2021-04-29] MEDS: LACTOBACILLUS/ACIDOPHILUS TAB PO SCH ×2 (09:15→20:08)
[2021-04-29] MEDS: MORPHINE 2 MG/ML SYR IV PRN ×2 (09:42→14:42)
[2021-04-29] MEDS: DOXYCYCLINE 100 MG in NA CHLORIDE 0.9% 100 ML IVPB SCH ×2 (09:44→20:08)
--- NOTE | 2021-04-29 13:56 | P.PN ---
Subjective Date of Service: 04/29/21 Primary Care Provider: Dr. Anaya Chief Complaint: large bowel ileus Patient seen examined at bedside, repeat labs ordered. So complaining suprapubic pain. Review of Systems 10-point ROS is otherwise unremarkable Physical Examination - Vital Signs Temperature: 98.2 F Blood Pressure: 151/68 Pulse: 81 Respirations: 16 Pulse Ox (%): 98 Assessment And Plan - Plan Physical Exam: General: Alert, In no apparent distress, Oriented x3 HEENT: Atraumatic, Normocephalic, Other Neck: 2+ carotid pulse no bruit Respiratory: Clear to auscultation bilaterally, Normal air movement Cardiovascular: No edema, Normal pulses, Regular rate/rhythm Capillary refill: <2 Seconds Gastrointestinal: Other (Distended, dull to percussion in all 4 quadrants. Patient denies tenderness.) Musculoskeletal: No clubbing, No swelling, No contractures Integumentary: No rashes, No breakdown, No significant lesion Neurological: Normal gait, Normal speech Urinary: Hancock catheter Conclusions/Impression: Antibiotics: doxycycline Start: 04/27 Stop: 05/04 Assessment: -UTI -bacteremia -large bowel ileus -history of enlarged prostate with chronic Hancock -RAUL on CKD stage 3 -anemia Plan: -urine culture performed on 04/25 growing Staph epidermis sensative to tetracyclines. Blood cultures performed on 04/26 also growing Staph epi. Repeat blood cultures pending. Patient will need antibiotic duration for 2 weeks following a negative blood culture, recommend PICC line placement. Continue doxycycline IV. Patient also on probiotic. -continue bowel rest. Metronidazole prophylactically started on 04/25 -medical management per primary team -continue monitor CBC and BMP -continue to monitor for signs infection Plan of care discussed with Dr. taylor Thank you for consultation Physician Review: Patient Assessed, Agree with Above Assessment and Plan
--- NOTE | 2021-04-29 14:19 | P.PN ---
Subjective Date of Service: 04/29/21 Primary Care Provider: Dr. Anaya Chief Complaint: large bowel ileus Patient complaining of left lower quadrant pain. He continues to have bowel movement. Blood cultures: coagulase negative Staph, Urine culture grew Staph epidermidis. Physical Examination - Vital Signs Temperature: 98.2 F Blood Pressure: 151/68 Pulse: 81 Respirations: 16 Pulse Ox (%): 98 - Physical Exam General: Mild distress (Due to pain), Other (Confused) HEENT: Mucous membr. moist/pink Neck: JVD not distended Respiratory: Clear to auscultation bilaterally, Normal air movement Cardiovascular: No edema, Regular rate/rhythm, Normal S1 S2 Gastrointestinal: Normal bowel sounds, Soft and benign, Distended, Tenderness (Right lower quadrant) Musculoskeletal: No swelling Integumentary: No rashes Neurological: Normal strength at 5/5 x4 extr Assessment And Plan - Plan Diagnosis Large bowel ileus acute catheter associated urinary tract infection RAUL on CKDIII hypokalemia HTN HLD hypothyroidism Gram positive bacteremia plan: -patient having a bowel movement but KUB demonstrate dilated colon. -most recent KUB with minimal stool. No obstruction. -colonic ileus likely chronic. -Clear liquid diet -surgery input appreciated. -case discussed with GI-Dr. Jerome will see patient in the office for arrangement for colonoscopy. -repeat CT abdomen due to abdominal pain onset. CT abdomen and pelvis will also evaluate the kidneys given UTI with bacteremia. -renal function improved. I suspect patient is currently at baseline. -nephrology is following. -UA grossly concerning for UTI. final cultures show staph epidermidis. -1 blood culture bottle also growing coagulase negative Staph. -continue doxycycline and flagyl -ID is following. Patient may need 2 weeks of IV antibiotics. -patient with h/o enlarged prostate with chronic indwelling Hancock. -optimize potassium. Keep potassium level around 4. Physician Review: Patient Assessed, Agree with Above Assessment and Plan
[2021-04-29] MEDS: D5 0.45 NS 1,000 ML IV SCH (14:39)
--- NOTE | 2021-04-29 14:39 | RAD REPORT ---
EXAM DESCRIPTION: CT - Abdomen Pelvis W Contrast - 04/29/2021 2:13 pm CLINICAL HISTORY: Abdominal pain COMPARISON: April 24, 2021 TECHNIQUE: Computed axial tomography of the abdomen pelvis was obtained. 100 cc Isovue-300 was admin istered intravenously. Oral contrast was not requested which limits evaluation of bowel. All CT scans are performed using dose optimization technique as appropriate and may include automated exposure control or mA/KV adjustment according to patient size. FINDINGS: Small right pleural effusion Fatty liver Splenic and hepatic granulomata The pancreas and adrenals are unremarkable. Right renal cysts. The largest measures 6 centimeters. Enhancement of the right renal pelvis There is no evidence of diverticulitis. Mild dilatation of several loops of small bowel. Prostate gland is markedly enlarged. A Hancock catheter has its balloon within the prostatic urethra. B ladder wall thickening. Moderate right small left inguinal hernias fat IMPRESSION: Hancock catheter has its balloon within the prostatic urethra Bladder wall thickening and trabeculations likely secondary to a chronic outlet obstruction Mild dilatation of several loops of small bowel having appearance of ileus Enhancement of the right renal pelvis may indicate inflammation
--- NOTE | 2021-04-29 19:19 | P.PN ---
Date of Service: 04/29/21 Vital Signs Temp Pulse Resp BP Pulse Ox 97.4 F 93 H 16 149/67 H 97 04/29/21 16:00 04/29/21 16:00 04/29/21 16:00 04/29/21 16:00 04/29/21 16:00 Medications Metronidazole/Sodium Chloride (Flagyl 500mg/100 Ml Iv Premix) 500 mg in 100 mls @ 200 mls/hr IV Q8HR [facility]; Protocol Last Admin: 04/29/21 16:31 Dose: 100 mls Documented by: Doxycycline Hyclate 100 mg/ (Sodium Chloride) 100 mls @ 100 mls/hr IVPB Q12HR [facility]; Protocol Last Admin: 04/29/21 09:44 Dose: 100 mls Documented by: Dextrose/Sodium Chloride (Dextrose 5% O.45% Saline) 1,000 mls @ 75 mls/hr IV .[id number] [facility] Last Admin: 04/29/21 14:39 Dose: 1,000 mls Documented by: Lactobacillus Acidoph/Bulgaricus (Lactobacillus/Acidophilus Tab) 1 tab PO BID [facility] Last Admin: 04/29/21 09:15 Dose: 1 tab Documented by: Morphine Sulfate (Morphine 2 Mg/Ml Syr) 2 mg IV Q6H PRN PRN Reason: Pain scale 5-7 (Moderate) Last Admin: 04/29/21 14:42 Dose: 2 mg Documented by: Ondansetron HCl (Ondansetron 4 Mg/2 Ml Vial) 4 mg IV Q6HP PRN PRN Reason: NAUSEA / VOMITING Last Admin: 04/28/21 20:22 Dose: 4 mg Documented by: Sodium Chloride (Flush Normal Saline 10 Ml) 10 ml IV BID [facility] Last Admin: 04/29/21 09:00 Dose: 10 ml Documented by: Assessment/ Plan: Nephrology Progress Note Suprapubic pain No chest pain or dyspnea No acute events overnight Vitals, medications blood work and imaging reviewed in the chart General: In no apparent distress, Cooperative HEENT: Atraumatic Neck: Supple Respiratory: Clear to auscultation bilaterally Cardiovascular: No edema, Regular rate/rhythm Gastrointestinal: Distended, Tenderness Musculoskeletal: No clubbing, No contractures Integumentary: No rashes, No cyanosis Neurological: Normal speech Laboratory Data (last 24 hrs) 04/24/21 09:15: PT 11.8, INR 1.03, APTT 24.3 04/24/21 09:15: WBC 8.50, Hgb 12.3 L, Hct 37.2 L, Plt Count 230 04/24/21 09:15: Sodium 140, Potassium 3.2 L, BUN 29 H, Creatinine 2.31 H, Glucose 145 H, Total Bilirubin 0.6, AST 26, ALT 34, Alkaline Phosphatase 104, Lipase 137 Imagings Data: EXAM DESCRIPTION: CT - Abdomen Pelvis Wo Contrast - 04/24/2021 10:13 am CLINICAL HISTORY: Abdominal pain COMPARISON: 2019 TECHNIQUE: Computed axial tomography of the abdomen and pelvis was obtained. IV and oral contrast were not requested. All CT scans are performed using dose optimization technique as appropriate and may include automated exposure control or mA/KV adjustment according to patient size. FINDINGS: The evaluation of solid organs, vessels and bowel is limited secondary to the lack of contrast administration. Hepatic and splenic granulomata. The pancreas and adrenals appear grossly normal. Several right renal cysts. The largest measures 6 centimeters. Mild dilatation of the colon having the appearance of an ileus. Fluid is present within large and small bowel. Normal appendix. Prostate gland is moderately to markedly enlarged. A Hancock catheter has its tip pushing against the superior wall of the bladder. No evidence of diverticulitis. Moderate right and small to moderate left inguinal hernias contain fat Small hiatal hernia IMPRESSION: Mild dilatation of fluid-filled large bowel having the appearance of an ileus. A Hancock catheter has its tip pushing against the superior wall of the bladder. Conclusions/Impression: RAUL likely due to hypovolemia CKD III -No NSAIDs -Continue IVF 1/2NS Hypokalemia -Replete potassium prn HTN with CKD -Monitor BP IFG A1C 6.3 -No sugar diet Anemia in chronic illness -Monitor H&H Large bowel ileus -Advance diet as tolerated -Follow up with surgery
[2021-04-30] MEDS: METRONIDAZOLE 500mg IVPB 500 MG/100 ML BAG IV SCH ×2 (00:05→08:59)
[2021-04-30] MEDS: D5 0.45 NS 1,000 ML IV SCH (03:56)
[2021-04-30 05:03] LABS: Urine Appearance CLEAR (Clear); Urine Bilirubin NEGATIVE (Negative); Urine Blood 1+ (Negative); Urine Color YELLOW (Yellow); Urine Glucose NEGATIVE (Negative); Urine Protein NEGATIVE (Negative); Urine Urobilinogen 0.2 mg/dL (0.2-1.0)
[2021-04-30 05:49] LABS: Urine RBC <5 /HPF (NONE SEEN)
[2021-04-30 05:50] LABS: Urine Bacteria <20 /HPF (NONE SEEN)
[2021-04-30 06:01] LABS: Albumin 2.4 g/dL (3.4-5.0); Bilirubin Total 0.4 mg/dL (0.2-1.0); Potassium 3.3 mmol/L (3.5-5.1); Protein, Total 6.1 g/dL (6.4-8.2)
[2021-04-30] MEDS: DOXYCYCLINE 100 MG in NA CHLORIDE 0.9% 100 ML IVPB SCH (08:54)
[2021-04-30] MEDS: LACTOBACILLUS/ACIDOPHILUS TAB PO SCH (08:59)
[2021-04-30] MEDS ORDERED: POTASSIUM 25 MEQ EFFERV TAB PO ONE (09:00)
--- NOTE | 2021-04-30 10:27 | P.PN ---
Subjective Date of Service: 04/30/21 Primary Care Provider: Dr. Anaya Chief Complaint: large bowel ileus Patient seen examined at bedside, doing much better today. Denies any abdominal pain, states he is passing gas. Repeat blood cultures pending. Afebrile, repeat labs ordered for tomorrow AM. Review of Systems 10-point ROS is otherwise unremarkable Physical Examination - Vital Signs Temperature: 98.6 F Blood Pressure: 145/58 Pulse: 71 Respirations: 16 Pulse Ox (%): 95 - Studies Laboratory Last Values WBC 8.50 K/uL (4.3-10.9) 04/24/21 09:15 RBC 4.37 M/uL (4.33-5.43) 04/24/21 09:15 Hgb 12.3 g/dL (13.6-17.9) L 04/24/21 09:15 Hct 37.2 % (39.6-49.0) L 04/24/21 09:15 MCV 85.2 fL (80-100) 04/24/21 09:15 MCH 28.2 pg (27.0-35.0) 04/24/21 09:15 MCHC 33.1 g/dL (32.0-36.0) 04/24/21 09:15 RDW 16.5 % (12.1-15.2) H 04/24/21 09:15 Plt Count 230 K/uL (152-406) 04/24/21 09:15 MPV 8.7 fL (7.6-11.3) 04/24/21 09:15 Neutrophils % 77.7 % (41.7-73.7) H 04/24/21 09:15 Lymphocytes % 14.6 % (15.3-44.8) L 04/24/21 09:15 Monocytes % 6.9 % (3.3-12.3) 04/24/21 09:15 Eosinophils % 0.4 % (0-4.4) 04/24/21 09:15 Basophils % 0.4 % (0-1.3) 04/24/21 09:15 Absolute Neutrophils 6.6 K/uL (1.8-8.0) 04/24/21 09:15 Absolute Lymphocytes 1.2 K/uL (0.7-4.9) 04/24/21 09:15 Absolute Monocytes 0.6 K/uL (0.1-1.3) 04/24/21 09:15 Absolute Eosinophils 0.0 K/uL (0-0.5) 04/24/21 09:15 Absolute Basophils 0.0 K/uL (0-0.5) 04/24/21 09:15 PT 11.8 SECONDS (9.5-12.5) 04/24/21 09:15 INR 1.03 04/24/21 09:15 APTT 24.3 SECONDS (24.3-36.9) 04/24/21 09:15 Sodium 140 mmol/L (136-145) 04/24/21 09:15 Potassium 3.2 mmol/L (3.5-5.1) L 04/24/21 09:15 Chloride 106 mmol/L (98-107) 04/24/21 09:15 Carbon Dioxide 24 mmol/L (21-32) 04/24/21 09:15 BUN 29 mg/dL (7-18) H 04/24/21 09:15 Creatinine 2.31 mg/dL (0.55-1.3) H 04/24/21 09:15 Estimated GFR 32 mL/min (=/>90) L 04/24/21 09:15 Glucose 145 mg/dL (74-106) H 04/24/21 09:15 Calcium 9.0 mg/dL (8.5-10.1) 04/24/21 09:15 Total Bilirubin 0.6 mg/dL (0.2-1.0) 04/24/21 09:15 Direct Bilirubin 0.2 mg/dL (0-0.2) 04/24/21 09:15 AST 26 U/L (15-37) 04/24/21 09:15 ALT 34 U/L (12-78) 04/24/21 09:15 Alkaline Phosphatase 104 U/L (45-117) 04/24/21 09:15 Serum Total Protein 7.5 g/dL (6.4-8.2) 04/24/21 09:15 Albumin 3.6 g/dL (3.4-5.0) 04/24/21 09:15 Globulin 3.9 g/dL (2.3-3.5) H 04/24/21 09:15 Albumin/Globulin Ratio 0.9 (1.1-1.8) L 04/24/21 09:15 Lipase 137 U/L (73-393) 04/24/21 09:15 SARS-CoV-2 RNA (RT-PCR) Negative (NEGATIVE) 04/24/21 09:25 Assessment And Plan - Plan Physical Exam: General: Alert, In no apparent distress, Oriented x3 HEENT: Atraumatic, Normocephalic, Other Neck: 2+ carotid pulse no bruit Respiratory: Clear to auscultation bilaterally, Normal air movement Cardiovascular: No edema, Normal pulses, Regular rate/rhythm Capillary refill: <2 Seconds Gastrointestinal: Other (Distended, dull to percussion in all 4 quadrants. Patient denies tenderness.) Musculoskeletal: No clubbing, No swelling, No contractures Integumentary: No rashes, No breakdown, No significant lesion Neurological: Normal gait, Normal speech Urinary: Hancock catheter Conclusions/Impression: Antibiotics: doxycycline Start: 04/27 Stop: 05/04 Assessment: -UTI -bacteremia -large bowel ileus -history of enlarged prostate with chronic Hancock -RAUL on CKD stage 3 -anemia Plan: -urine culture performed on 04/25 growing Staph epidermis sensative to tetracyclines. Blood cultures performed on 04/26 also growing Staph epi. Repeat blood cultures pending. Patient will need antibiotic duration for 2 weeks following a negative blood culture, recommend PICC line placement. Continue doxycycline IV. Patient also on probiotic. -continue bowel rest. Metronidazole prophylactically started on 04/25 -medical management per primary team -continue monitor CBC and BMP -continue to monitor for signs infection Plan of care discussed with Dr. taylor Thank you for consultation Physician Review: Patient Assessed, Agree with Above Assessment and Plan
[2021-04-30 10:37] LABS: Absolute Lymphocytes (CBC) 1.2 K/uL (0.7-4.9); Basophils % 0.6 % (0-1.3); Hematocrit 38.2 % (39.6-49.0); Lymphocytes % 18.2 % (15.3-44.8); MPV 7.6 fL (7.6-11.3)
[2021-04-30 11:26] VITALS: O2SAT 95
--- NOTE | 2021-04-30 16:03 | P.DS ---
Admission Date: 04/24/21 Discharge Date: 04/30/21 Primary Care Provider: Dr. Anaya Disposition: DC HOME/HOME HEALTH CARE Discharge Condition: FAIR Reason for Admission: large bowel ileus - Problems (1) Adynamic ileus Current Visit: Yes Status: Acute (2) UTI (urinary tract infection) Current Visit: Yes Status: Acute (3) Staphylococcus epidermidis infection Current Visit: Yes Status: Acute Brief History of Present Illness: 89 y/o M with HTN, HLD, hypothyroidism who presented with RLQ pain and episodes of vomiting x1 day. He had an episode of diarrhea on the day of presentation. CT abdomen and pelvis showed diffuse dilated bowel. Patient hospitalized for further management. Hospital Course: Patient admitted to the medical floor. General surgery consulted, no surgical intervention. 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 -colonic ileus likely chronic. -patient tolerated diet. -case discussed with GI-Dr. Jerome will see patient in the office for arrangement for colonoscopy. -repeat CT abdomen due to abdominal pain onset. Repeat CT reported mild dilatation of several bowels and enhancement of the right renal pelvis. -renal function improved. I suspect patient is currently at baseline. Nephrology assisted with management. -UA grossly concerning for UTI. Urine culture:staph epidermidis sensitive to doxycycline -1 blood culture bottle grew coagulase negative Staph. Patient seen and evaluated by infectious disease and placed on IV doxycycline and Flagyl. -repeat blood culture is negative. Infectious disease recommended 2 weeks of doxycycline. -patient with h/o enlarged prostate with chronic indwelling Hancock. -optimize electrolytes including potassium. Vital Signs/Physical Exam: Temp Pulse Resp BP Pulse Ox 96.9 F 81 18 138/64 97 04/30/21 12:00 04/30/21 12:00 04/30/21 12:00 04/30/21 12:00 04/30/21 12:00 General: Alert, In no apparent distress, Oriented x3 HEENT: Mucous membr. moist/pink Neck: JVD not distended Respiratory: Clear to auscultation bilaterally, Normal air movement Cardiovascular: Regular rate/rhythm, Normal S1 S2 Gastrointestinal: Soft and benign, No tenderness, Distended (Mildly distended) Musculoskeletal: No swelling Integumentary: No rashes, No erythema Neurological: Normal speech, Normal strength at 5/5 x4 extr, Cranial nerves 3-12 intact Laboratory Data at Discharge: WBC 6.70 K/uL (4.3-10.9) D 04/30/21 10:22 Hgb 12.4 g/dL (13.6-17.9) L 04/30/21 10:22 Hct 38.2 % (39.6-49.0) L 04/30/21 10:22 Plt Count 272 K/uL (152-406) D 04/30/21 10:22 PT 11.8 SECONDS (9.5-12.5) 04/24/21 09:15 INR 1.03 04/24/21 09:15 APTT 24.3 SECONDS (24.3-36.9) 04/24/21 09:15 Sodium 140 mmol/L (136-145) 04/30/21 10:22 Potassium 4.0 mmol/L (3.5-5.1) 04/30/21 10:22 BUN 8 mg/dL (7-18) 04/30/21 10:22 Creatinine 1.54 mg/dL (0.55-1.3) H 04/30/21 10:22 Glucose 164 mg/dL (74-106) H 04/30/21 10:22 Uric Acid 8.7 mg/dL (3.5-7.2) H 04/25/21 06:38 Phosphorus 3.1 mg/dL (2.5-4.9) 04/25/21 06:38 Magnesium 2.1 mg/dL (1.8-2.4) 04/25/21 06:38 Total Bilirubin 0.4 mg/dL (0.2-1.0) 04/30/21 05:20 AST 39 U/L (15-37) H 04/30/21 05:20 ALT 34 U/L (12-78) 04/30/21 05:20 Alkaline Phosphatase 70 U/L (45-117) 04/30/21 05:20 Lipase 137 U/L (73-393) 04/24/21 09:15 Home Medications: Aspirin [Aspirin EC 81 MG] 81 mg PO DAILY 04/24/21 Atorvastatin Calcium 40 mg PO BEDTIME 04/24/21 Levothyroxine Sodium [Levothyroxine] 75 mcg PO DAILY 04/24/21 Quinapril/Hydrochlorothiazide [Quinapril-Hctz 20-25 mg Tab] 1 tab PO DAILY 04/24/21 Doxycycline Hyclate 100 mg PO BID #28 capsule 04/30/21 Lactobacillus Acidophilus [Acidophilus] 1 each PO BID #60 tablet 04/30/21 Senosides [Senokot] 2 tab PO BID #120 tab 04/30/21 New Medications: Lactobacillus Acidophilus [Acidophilus] 1 each PO BID #60 tablet Doxycycline Hyclate 100 mg PO BID #28 capsule Senosides [Senokot] 2 tab PO BID #120 tab Diet: AHA Activity: Fall precautions Followup: Nain Jerome MD [ACTIVE - CAN ADMIT] - 1-2 Weeks Unknown,U [Primary Care Provider] - Time spent managing pt's care (in minutes): 44
[2021-04-30 16:11] VITALS: BP 145/49; TEMP 97
--- NOTE | 2021-04-30 19:57 | P.PN ---
Date of Service: 04/30/21 Vital Signs Temp Pulse Resp BP Pulse Ox 97.0 F 79 16 145/49 H 100 04/30/21 16:00 04/30/21 16:00 04/30/21 16:00 04/30/21 16:00 04/30/21 16:00 Assessment/ Plan: Nephrology Progress Note Feeling much better today. No chest pain or dyspnea No acute events overnight Vitals, medications blood work and imaging reviewed in the chart General: In no apparent distress, Cooperative HEENT: Atraumatic Neck: Supple Respiratory: Clear to auscultation bilaterally Cardiovascular: No edema, Regular rate/rhythm Gastrointestinal: Distended, Tenderness Musculoskeletal: No clubbing, No contractures Integumentary: No rashes, No cyanosis Neurological: Normal speech Laboratory Data (last 24 hrs) 04/24/21 09:15: PT 11.8, INR 1.03, APTT 24.3 04/24/21 09:15: WBC 8.50, Hgb 12.3 L, Hct 37.2 L, Plt Count 230 04/24/21 09:15: Sodium 140, Potassium 3.2 L, BUN 29 H, Creatinine 2.31 H, Glucose 145 H, Total Bilirubin 0.6, AST 26, ALT 34, Alkaline Phosphatase 104, Lipase 137 Imagings Data: EXAM DESCRIPTION: CT - Abdomen Pelvis Wo Contrast - 04/24/2021 10:13 am CLINICAL HISTORY: Abdominal pain COMPARISON: 2018 TECHNIQUE: Computed axial tomography of the abdomen and pelvis was obtained. IV and oral contrast were not requested. All CT scans are performed using dose optimization technique as appropriate and may include automated exposure control or mA/KV adjustment according to patient size. FINDINGS: The evaluation of solid organs, vessels and bowel is limited secondary to the lack of contrast administration. Hepatic and splenic granulomata. The pancreas and adrenals appear grossly normal. Several right renal cysts. The largest measures 6 centimeters. Mild dilatation of the colon having the appearance of an ileus. Fluid is present within large and small bowel. Normal appendix. Prostate gland is moderately to markedly enlarged. A Hancock catheter has its tip pushing against the superior wall of the bladder. No evidence of diverticulitis. Moderate right and small to moderate left inguinal hernias contain fat Small hiatal hernia IMPRESSION: Mild dilatation of fluid-filled large bowel having the appearance of an ileus. A Hancock catheter has its tip pushing against the superior wall of the bladder. Conclusions/Impression: RAUL likely due to hypovolemia CKD III -No NSAIDs -Discontinue IVF 1/2NS Hypokalemia -Replete potassium today HTN with CKD -Monitor BP IFG A1C 6.3 -No sugar diet Anemia in chronic illness -Monitor H&H Large bowel ileus -Advance diet -Follow up with surgery as needed
== END 2021-04-30 18:03 | disposition home health service (06) | DRG 871 ==
LOC: ER 08:28 → ERHOLD 11:58 → 2ND 19:41
PROVIDERS: ADMIT Hospitalist; ATTEND Hospitalist
DX: R78.81 Bacteremia (principal); G93.41 Metabolic encephalopathy; K56.0 Paralytic ileus; T83.511A Infection and inflammatory reaction due to indwelling urethral catheter, initial encounter; N39.0 Urinary tract infection, site not specified; N17.9 Acute kidney failure, unspecified; E87.6 Hypokalemia; E03.9 Hypothyroidism, unspecified; E78.5 Hyperlipidemia, unspecified; I12.9 Hypertensive chronic kidney disease with stage 1 through stage 4 chronic kidney disease, or unspecified chronic kidney disease; N18.30 Chronic kidney disease, stage 3 unspecified; D63.8 Anemia in other chronic diseases classified elsewhere; B95.8 Unspecified staphylococcus as the cause of diseases classified elsewhere; B95.7 Other staphylococcus as the cause of diseases classified elsewhere; Z20.822 Contact with and (suspected) exposure to COVID-19
CPT/HCPCS: 36415; 74018; 74022; 74176; 74177; 80048; 80053; 80076; 81001; 81003; 81015; 82947; 83036; 83690; 83735; 84100; 84132; 84145; 84439; 84443; 84550; 85025; 85610; 85730; 86140; 87040; 87077; 87086; 87088; 87186; 87205; 96361; 96374; 96375; 99285; J0696; J2270; J2405; J3480; J7030; J7799; Q9967; U0003